=== PATIENT | male | born 1960 | race Caucasian/White ===

== ENCOUNTER 2019-08-02 14:07 | Emergency (ER) | payer OTHER ==
[~2019-08-02] VITALS: Ht 185.4 cm; Wt 74.8 kg
[~2019-08-02 14:07] MED LIST: Bactrim Ds Tab1 EACH PO; CEPH500 PO; MUPI2TC TOP
[2019-08-02 14:36] LABS: BASOPHILS ABSOLUTE AUTO 0.08 K/mm3 (0.00-0.23); BASOPHILS PERCENT AUTO 1 % (0-2); EOSINOPHILS ABSOLUTE AUTO 0.04 K/mm3 (0.00-0.68); EOSINOPHILS PERCENT AUTO 1 % (0-6); Hematocrit 42.3 % (37.0-53.0); Hemoglobin 14.3 g/dL (13.5-17.5); IMMATURE GRAN ABSOLUTE AUTO 0.02 K/mm3 (0.00-0.10); IMMATURE GRAN PERCENT AUTO 0 % (0-1); LYMPHOCYTES ABSOLUTE AUTO 2.89 K/mm3 (0.84-5.20); LYMPHOCYTES PERCENT AUTO 36 % (21-46); MONOCYTES ABSOLUTE AUTO 0.83 K/mm3 (0.16-1.47); MONOCYTES PERCENT AUTO 10 % (4-13); Mean Corpuscular HGB 33.8 pg (26.0-34.0); Mean Corpuscular HGB Conc 33.8 g/dL (31.5-36.5); Mean Corpuscular Volume 100 fL (80-100); NEUTROPHILS ABSOLUTE AUTO 4.23 K/mm3 (1.96-9.15); NEUTROPHILS PERCENT AUTO 52 % (41-73); Platelet Count 247 K/mm3 (150-400); RDW Coefficient Variation 12.5 % (11.7-14.2); RDW Standard Deviation 46.8 fL (35.1-46.3); Red Blood Cell Count 4.23 M/mm3 (4.30-5.90); White Blood Cell Count 8.09 K/mm3 (4.00-11.30)
[2019-08-02] MEDS ORDERED: Bactrim Ds Tab1 EACH PO (14:56)
[2019-08-02] MEDS ORDERED: Keflex500 MG PO (14:56)
[2019-08-02 14:57] LABS: Alanine Aminotransfer (ALT/SGP 51 U/L (12-78); Albumin, Blood 3.8 g/dL (3.4-5.0); Albumin/Globulin Ratio 0.9 (0.8-1.8); Alk Phos 74 U/L (50-136); Anion Gap 10 mmol/L (6-16); Aspartate Aminotrans (AST/SGOT 53 U/L (12-37); Bilirubin, Total 0.4 mg/dL (0.1-1.0); Blood Urea Nitrogen 9 mg/dL (8-24); Bun/Creatinine Ratio 17.7 (12.0-20.0); CO2, Blood 22 mmol/L (21-32); Calcium, Blood 8.2 mg/dL (8.5-10.1); Chloride, Blood 102 mmol/L (98-108); Creatinine, Blood 0.51 mg/dL (0.60-1.20); Globulin, Blood 4.3 g/dL (2.2-4.0); Glomerular Filtration Rate >60 (60-); Glucose, Blood 84 mg/dL (70-99); Sodium, Blood 134 mmol/L (136-145); Total Protein, Blood 8.1 g/dL (6.4-8.2)
== END 2019-08-02 15:24 | disposition home or self-care (01) ==
LOC: ER 14:07
PROVIDERS: Physician Assistant
DX: L97.929 Non-pressure chronic ulcer of unspecified part of left lower leg with unspecified severity (principal); F17.200 Nicotine dependence, unspecified, uncomplicated
CPT/HCPCS: 36415; 80053; 85025; 87070; 87075; 87077; 87147; 87186; 87205; 99283

== ENCOUNTER 2019-08-03 11:04 | Emergency (ER) | payer OTHER ==
[~2019-08-03] VITALS: Ht 185.4 cm; Wt 74.8 kg
[~2019-08-03 11:04] MED LIST changes: +Keflex500 MG PO
== END 2019-08-03 12:41 | disposition home or self-care (01) ==
LOC: ER 11:04
DX: L97.929 Non-pressure chronic ulcer of unspecified part of left lower leg with unspecified severity (principal); F17.200 Nicotine dependence, unspecified, uncomplicated
CPT/HCPCS: 99282

== ENCOUNTER 2020-04-30 19:03 | Emergency (ER) | payer OTHER ==
[~2020-04-30] VITALS: Ht 185.4 cm; Wt 67.6 kg
[~2020-04-30 19:03] MED LIST changes: +ACETAMINOPHEN500 MG PO
[2020-04-30] MEDS ORDERED: Naprosyn500 MG PO (19:21)
[2020-04-30] MEDS ORDERED: Bactrim Ds Tab1 EACH PO (19:21)
[2020-04-30] MEDS ORDERED: Keflex500 MG PO (19:21)
== END 2020-04-30 19:36 | disposition home or self-care (01) ==
LOC: ER 19:03
DX: L03.312 Cellulitis of back [any part except buttock and flank] (principal); F17.210 Nicotine dependence, cigarettes, uncomplicated
CPT/HCPCS: 99283; A9270-GY

== ENCOUNTER 2020-07-16 16:33 | Emergency (ER) | payer OTHER ==
[~2020-07-16] VITALS: Ht 177.8 cm; Wt 65.8 kg
[~2020-07-16 16:33] MED LIST changes: +Naprosyn500 MG PO
== END 2020-07-16 21:00 | disposition home or self-care (01) ==
LOC: ER 16:33
DX: S43.034A Inferior dislocation of right humerus, initial encounter (principal); S09.90XA Unspecified injury of head, initial encounter; F17.210 Nicotine dependence, cigarettes, uncomplicated; V19.9XXA Pedal cyclist (driver) (passenger) injured in unspecified traffic accident, initial encounter; Y92.410 Unspecified street and highway as the place of occurrence of the external cause
CPT/HCPCS: 23650; 70450; 72125; 73020; 73030; 96374-59; 99152; 99285-25; J2250; J2704; J3010; J7030

== ENCOUNTER 2020-07-18 07:31 | Emergency (ER) | payer OTHER ==
[~2020-07-18] VITALS: Ht 182.9 cm; Wt 86.2 kg
[2020-07-18 08:38] LABS: BASOPHILS ABSOLUTE AUTO 0.05 K/mm3 (0.00-0.23); BASOPHILS PERCENT AUTO 1 % (0-2); EOSINOPHILS PERCENT AUTO 0 % (0-6); Hematocrit 42.8 % (37.0-53.0); Hemoglobin 14.9 g/dL (13.5-17.5); IMMATURE GRAN ABSOLUTE AUTO 0.03 K/mm3 (0.00-0.10); IMMATURE GRAN PERCENT AUTO 0 % (0-1); LYMPHOCYTES ABSOLUTE AUTO 0.76 K/mm3 (0.84-5.20); LYMPHOCYTES PERCENT AUTO 10 % (21-46); MONOCYTES ABSOLUTE AUTO 0.52 K/mm3 (0.16-1.47); MONOCYTES PERCENT AUTO 7 % (4-13); Mean Corpuscular HGB 34.2 pg (26.0-34.0); Mean Corpuscular HGB Conc 34.8 g/dL (31.5-36.5); Mean Corpuscular Volume 98 fL (80-100); Mean Platelet Volume 9.6 fL (9.1-12.4); NEUTROPHILS ABSOLUTE AUTO 6.23 K/mm3 (1.96-9.15); NEUTROPHILS PERCENT AUTO 82 % (41-73); Platelet Count 239 K/mm3 (150-400); RDW Coefficient Variation 11.9 % (11.7-14.2); RDW Standard Deviation 43.5 fL (35.1-46.3); Red Blood Cell Count 4.36 M/mm3 (4.30-5.90); White Blood Cell Count 7.59 K/mm3 (4.00-11.30)
[2020-07-18 08:59] LABS: Alanine Aminotransfer (ALT/SGP 73 U/L (12-78); Albumin/Globulin Ratio 0.9 (0.8-1.8); Alk Phos 82 U/L (50-136); Anion Gap 6 mmol/L (6-16); Aspartate Aminotrans (AST/SGOT 88 U/L (12-37); Bilirubin, Total 0.6 mg/dL (0.1-1.0); Blood Urea Nitrogen 8 mg/dL (8-24); Bun/Creatinine Ratio 16.8 (12.0-20.0); CO2, Blood 28 mmol/L (21-32); Calcium, Blood 9.2 mg/dL (8.5-10.1); Chloride, Blood 105 mmol/L (98-108); Creatinine, Blood 0.48 mg/dL (0.60-1.20); Globulin, Blood 4.5 g/dL (2.2-4.0); Glomerular Filtration Rate >60 (60-); Glucose, Blood 132 mg/dL (70-99); Potassium, Blood 4.1 mmol/L (3.5-5.5); Sodium, Blood 139 mmol/L (136-145); Total Protein, Blood 8.5 g/dL (6.4-8.2)
== END 2020-07-18 11:57 | disposition home or self-care (01) ==
LOC: ER 07:31
PROVIDERS: Emergency Medicine
DX: S01.111A Laceration without foreign body of right eyelid and periocular area, initial encounter (principal); R42 Dizziness and giddiness; F17.210 Nicotine dependence, cigarettes, uncomplicated; Z23 Encounter for immunization; Z79.899 Other long term (current) drug therapy; W01.10XA Fall on same level from slipping, tripping and stumbling with subsequent striking against unspecified object, initial encounter
CPT/HCPCS: 12052; 36415; 70450; 80053; 85025; 90471; 90714; 93005; 93010; 99284-25

== ENCOUNTER → 2020-07-28 | Outpatient (CLI) | payer OTHER ==
[~2020-07-28] MED LIST changes: +AMLO10 PO; +B-1100 M1 PO; +CEFU500T30 PO; +HYDCHL12.5 PO; +Prinivil10 MG PO; +VSL PROBIOTIC PO
[2020-07-28 12:45] LABS: BASOPHILS ABSOLUTE AUTO 0.07 K/mm3 (0.00-0.23); BASOPHILS PERCENT AUTO 1 % (0-2); EOSINOPHILS ABSOLUTE AUTO 0.01 K/mm3 (0.00-0.68); EOSINOPHILS PERCENT AUTO 0 % (0-6); Hematocrit 41.3 % (37.0-53.0); Hemoglobin 14.1 g/dL (13.5-17.5); IMMATURE GRAN ABSOLUTE AUTO 0.06 K/mm3 (0.00-0.10); IMMATURE GRAN PERCENT AUTO 1 % (0-1); LYMPHOCYTES ABSOLUTE AUTO 1.67 K/mm3 (0.84-5.20); LYMPHOCYTES PERCENT AUTO 18 % (21-46); MONOCYTES ABSOLUTE AUTO 0.83 K/mm3 (0.16-1.47); MONOCYTES PERCENT AUTO 9 % (4-13); Mean Corpuscular HGB 34.2 pg (26.0-34.0); Mean Corpuscular HGB Conc 34.1 g/dL (31.5-36.5); Mean Corpuscular Volume 100 fL (80-100); Mean Platelet Volume 9.6 fL (9.1-12.4); NEUTROPHILS ABSOLUTE AUTO 6.92 K/mm3 (1.96-9.15); NEUTROPHILS PERCENT AUTO 72 % (41-73); Platelet Count 281 K/mm3 (150-400); RDW Standard Deviation 44.3 fL (35.1-46.3); Red Blood Cell Count 4.12 M/mm3 (4.30-5.90); White Blood Cell Count 9.56 K/mm3 (4.00-11.30)
[2020-07-28 13:30] LABS: Alanine Aminotransfer (ALT/SGP 72 U/L (12-78); Albumin, Blood 3.5 g/dL (3.4-5.0); Albumin/Globulin Ratio 0.7 (0.8-1.8); Alk Phos 86 U/L (50-136); Anion Gap 8 mmol/L (6-16); Aspartate Aminotrans (AST/SGOT 71 U/L (12-37); Bilirubin, Total 0.4 mg/dL (0.1-1.0); Blood Urea Nitrogen 11 mg/dL (8-24); Bun/Creatinine Ratio 20.4 (12.0-20.0); CHOL/HDL RATIO 2.2; CO2, Blood 26 mmol/L (21-32); Calcium, Blood 8.7 mg/dL (8.5-10.1); Chloride, Blood 101 mmol/L (98-108); Cholesterol 136 mg/dL (50-200); Creatinine, Blood 0.54 mg/dL (0.60-1.20); Globulin, Blood 4.9 g/dL (2.2-4.0); Glomerular Filtration Rate >60 (60-); Glucose, Blood 114 mg/dL (70-99); HDL Cholesterol 62 mg/dL (>39); Low Density Lipoprotein Chol 62 mg/dL (0-110); Potassium, Blood 4.4 mmol/L (3.5-5.5); Sodium, Blood 135 mmol/L (136-145); Total Protein, Blood 8.4 g/dL (6.4-8.2); Triglycerides 58 mg/dL (30-160); Very Low Density Lipoprot Chol 11 mg/dL (6-32)
== END | disposition home or self-care (01) ==
LOC: LAB SHORT 09:00 → LAB UCHC 09:00
PROVIDERS: Nurse Practitioner
DX: Z13.6 Encounter for screening for cardiovascular disorders (principal); R42 Dizziness and giddiness
CPT/HCPCS: 80053; 80061; 85025

== ENCOUNTER 2020-08-01 09:19 | Emergency (ER) | payer OTHER ==
[~2020-08-01 09:19] MED LIST changes: -AMLO10 PO; -B-1100 M1 PO; -CEFU500T30 PO; -HYDCHL12.5 PO; -Prinivil10 MG PO; -VSL PROBIOTIC PO
== END 2020-08-01 09:49 | disposition left against medical advice (07) ==
LOC: ER 09:19
DX: Z53.21 Procedure and treatment not carried out due to patient leaving prior to being seen by health care provider (principal)

== ENCOUNTER 2020-08-02 17:09 | Inpatient (IN) | payer OTHER ==
[~2020-08-02] VITALS: Ht 185.4 cm; Wt 66.6 kg
[2020-08-02 17:48] LABS: BASOPHILS ABSOLUTE AUTO 0.06 K/mm3 (0.00-0.23); BASOPHILS PERCENT AUTO 1 % (0-2); EOSINOPHILS ABSOLUTE AUTO 0.06 K/mm3 (0.00-0.68); EOSINOPHILS PERCENT AUTO 1 % (0-6); Hematocrit 41.8 % (37.0-53.0); IMMATURE GRAN ABSOLUTE AUTO 0.06 K/mm3 (0.00-0.10); IMMATURE GRAN PERCENT AUTO 1 % (0-1); LYMPHOCYTES ABSOLUTE AUTO 2.15 K/mm3 (0.84-5.20); LYMPHOCYTES PERCENT AUTO 25 % (21-46); MONOCYTES PERCENT AUTO 10 % (4-13); Mean Corpuscular HGB 33.7 pg (26.0-34.0); Mean Corpuscular HGB Conc 33.5 g/dL (31.5-36.5); Mean Corpuscular Volume 101 fL (80-100); Mean Platelet Volume 9.3 fL (9.1-12.4); NEUTROPHILS ABSOLUTE AUTO 5.41 K/mm3 (1.96-9.15); NEUTROPHILS PERCENT AUTO 63 % (41-73); Platelet Count 315 K/mm3 (150-400); RDW Coefficient Variation 11.9 % (11.7-14.2); RDW Standard Deviation 44.6 fL (35.1-46.3); Red Blood Cell Count 4.16 M/mm3 (4.30-5.90); White Blood Cell Count 8.64 K/mm3 (4.00-11.30)
[2020-08-02 18:20] LABS: Alanine Aminotransfer (ALT/SGP 63 U/L (12-78); Albumin, Blood 3.6 g/dL (3.4-5.0); Albumin/Globulin Ratio 0.7 (0.8-1.8); Alk Phos 92 U/L (50-136); Anion Gap 6 mmol/L (6-16); Aspartate Aminotrans (AST/SGOT 61 U/L (12-37); Bilirubin, Total 0.4 mg/dL (0.1-1.0); Blood Urea Nitrogen 12 mg/dL (8-24); Bun/Creatinine Ratio 17.6 (12.0-20.0); CO2, Blood 27 mmol/L (21-32); Calcium, Blood 9.4 mg/dL (8.5-10.1); Chloride, Blood 103 mmol/L (98-108); Creatinine, Blood 0.68 mg/dL (0.60-1.20); Glomerular Filtration Rate >60 (60-); Glucose, Blood 89 mg/dL (70-99); Potassium, Blood 4.5 mmol/L (3.5-5.5); Sodium, Blood 136 mmol/L (136-145); Total Protein, Blood 8.6 g/dL (6.4-8.2)
[2020-08-03 04:50] LABS: BASOPHILS ABSOLUTE AUTO 0.06 K/mm3 (0.00-0.23); BASOPHILS PERCENT AUTO 1 % (0-2); EOSINOPHILS ABSOLUTE AUTO 0.05 K/mm3 (0.00-0.68); EOSINOPHILS PERCENT AUTO 1 % (0-6); Hematocrit 44.8 % (37.0-53.0); IMMATURE GRAN ABSOLUTE AUTO 0.03 K/mm3 (0.00-0.10); IMMATURE GRAN PERCENT AUTO 1 % (0-1); LYMPHOCYTES ABSOLUTE AUTO 1.48 K/mm3 (0.84-5.20); LYMPHOCYTES PERCENT AUTO 23 % (21-46); MONOCYTES ABSOLUTE AUTO 0.76 K/mm3 (0.16-1.47); MONOCYTES PERCENT AUTO 12 % (4-13); Mean Corpuscular HGB 33.5 pg (26.0-34.0); Mean Corpuscular HGB Conc 33.5 g/dL (31.5-36.5); Mean Corpuscular Volume 100 fL (80-100); Mean Platelet Volume 9.4 fL (9.1-12.4); NEUTROPHILS ABSOLUTE AUTO 4.19 K/mm3 (1.96-9.15); NEUTROPHILS PERCENT AUTO 64 % (41-73); Platelet Count 307 K/mm3 (150-400); RDW Coefficient Variation 11.9 % (11.7-14.2); RDW Standard Deviation 43.8 fL (35.1-46.3); Red Blood Cell Count 4.48 M/mm3 (4.30-5.90); White Blood Cell Count 6.57 K/mm3 (4.00-11.30)
--- NOTE | 2020-08-03 06:38 | NUR ---
SHIFT SUMMARY PT WAS A NEW ADMIT DURING THE NIGHT, ARRIVING ON THE FLOOR AT 2054. HE WAS ADMITTED FOR R EYE CELLULITIS AND ABSCESS. PER PT, HE RECEIVED A LACERATION AND STITCHES AFTER A FALL TWO WEEKS AGO THAT BECAME INFECTED. PICTURES IN THE CHART. PT IS A&O X 4, SBA IN THE ROOM. PT DID REPORT MILD PAIN IN THE SITE, BUT REFUSED THE NEED FOR PAIN MEDS, AND DENIED ANY NAUSEA OR SOB. BP WAS ELEVATED ON ADMISSION AT 201/123. PRN HYDRALAZINE ORDERED AND GIVEN, AND BP CAME DOWN TO 173/106. ALL OTHER VITAL SIGNS STABLE. TELE SHOWED NSR IN THE 90S. NO OTHER ACUTE CHANGES IN PT CONDITION NOTED DURING THE NIGHT. WILL CONTINUE TO MONITOR AND TREAT PER EMAR UNTIL HAND OFF TO DAY SHIFT RN.
--- NOTE | 2020-08-03 18:22 | NUR ---
PAT ATE HIS MEALS, WAS MED COMPLAINT, PLEASANT, ABULATES WITH NO ASSIST, IV SITE WNL AND RUNNING, RESTING IN BED WAITING FOR OPTHALMIC CONSULT.
--- NOTE | 2020-08-03 19:25 | NUR ---
ASSUMED CARE RECEIVED REPORT FROM OMAIRA DE. ASSUMED CARE OF PT. PT RESTING COMFORTABLY, NO S/S ACUTE DISTRESS NOTED, RESPS EVEN AND UNLABORED. DENIES NEEDS. CALL LIGHT, POSSESSIONS IN REACH, BED IN LOW POSITION. WCTM.
--- NOTE | 2020-08-04 07:30 | NUR ---
SHIFT SUMMARY PT RESTING COMFORTABLY, NO S/S ACUTE DISTRESS NOTED. REPORTS NOT SLEEPING MUCH T/O NIGHT, STATES HE WAS SWEATY AND NOT FEELING WELL. RT EYE REMAINS SWOLLEN, PT REPORTS DECREASED VISION AND ABILITY TO OPEN/CLOSE EYE. OPHTHALMOLOGY CONSULT PENDING. VS REVIEWED. PT DENIES NEEDS AT THIS TIME. CALL LIGHT, POSSESSIONS IN REACH, REPORT GIVEN TO OMAIRA VALENCIA.
--- NOTE | 2020-08-04 18:52 | NUR ---
SHIFT SUMMARY: NO ACUTE EVENTS THIS SHIFT. UNABLE TO ASSESS R EYE D/T SWELLING AND CRUSTING. NO EVENTS ON TELEMETRY, SR-ST 90-110. TOLERATING REGULAR DIET. NICOTINE PATCH ON SCOUT. DR. OTT EXAMINED PATIENT TODAY. ABX SWITCHED TO UNASYN, TOLERATING. GOOD APPETITE. INDEPENDENT IN ROOM.
--- NOTE | 2020-08-04 19:00 | NUR ---
ASSUMED CARE RECEIVED REPORT FROM OMAIRA VALENCIA. ASSUMED CARE OF PT. RESTING COMFORTABLY, NO S/S ACUTE DISTRESS NOTED. DENIES NEEDS. CALL LIGHT, POSSESSIONS IN REACH, BED IN LOW POSITION. WCTM.
--- NOTE | 2020-08-05 07:10 | NUR ---
SHIFT SUMMARY PT HAS HAD NO ACUTE CHANGES IN CONDITION T/O NIGHT, SLEPT T/O. TOLERATED PHENOBARBITAL WELL, NO S/S ADVERSE EFFECTS NOTED. RT EYE REMAINS SWOLLEN, MEDICATED FOR PAIN, EFFECTIVE. VS REVIEWED, MEDICATED FOR HTN X1, EFFECTIVE. PT DENIES NEEDS AT THIS TIME. CALL LIGHT, POSSESSIONS IN REACH, BED IN LOW POSITION WITH ALARMS ON. REPORT GIVEN TO OMAIRA READ.
--- NOTE | 2020-08-05 19:45 | NUR ---
SHIFT SUMMARY PT AXO, PLEASANT AND COOPERATIVE WITH CARE. UP AD INGRID IN ROOM WITH STEADY GAIT. IV PATENT AND INFUSING PER EMAR. WOUND OPEN TO AIR, CONTINUES TO DRAIN MODERATE AMOUNT OF YELLOW DRAINAGE. NO ACUTE CHANGES THIS SHIFT. PT EDUCATED ON SMOKING CESSATION. BED IN LOW POSITION, CALL LIGHT WITHIN REACH.
[2020-08-06] MEDS ORDERED: AMLO10 PO (10:24)
[2020-08-06] MEDS ORDERED: CEFU500T30 PO (10:25)
[2020-08-06] MEDS ORDERED: VSL PROBIOTIC PO (10:25)
[2020-08-06] MEDS ORDERED: HYDCHL12.5 PO (10:26)
[2020-08-06] MEDS ORDERED: B-1100 M1 PO (10:26)
[2020-08-06] MEDS ORDERED: Prinivil10 MG PO (10:26)
--- NOTE | 2020-08-06 11:06 | NUR ---
DISCHARGE PT DISCHARGED TO HOME WALKED WITH FRIEND. IV DCD. PT ALSO PROVIDED PACKET/HANDOUTS -MEDICATIONS SENT TO [facility]. PT ALSO TOLD TO FU TO PCP. VSS THIS AM. AND PT EDUCATED ABOUT THE NEW RX MEDICATIONS.
== END 2020-08-06 10:45 | disposition home or self-care (01) | DRG 603 ==
LOC: ER 17:09 → MEDS 17:10
PROVIDERS: Physician Assistant; ADMIT Family Medicine
DX: L03.213 Periorbital cellulitis (principal); F10.239 Alcohol dependence with withdrawal, unspecified; R65.10 Systemic inflammatory response syndrome (SIRS) of non-infectious origin without acute organ dysfunction; I10 Essential (primary) hypertension; I16.0 Hypertensive urgency; Z59.0 Homelessness; W19.XXXA Unspecified fall, initial encounter; B95.0 Streptococcus, group A, as the cause of diseases classified elsewhere; F17.210 Nicotine dependence, cigarettes, uncomplicated
CPT/HCPCS: 36415; 70481; 80053; 85025; 87070; 87075; 87147; 87205; 94640; 94760; 96365-59; 96375-59; 99285-25; A9270; A9270-GY; J0295; J0690; J0696; J1885; J3370; J7050; Q9967

== ENCOUNTER → 2020-08-18 | Outpatient (CLI) | payer OTHER ==
[~2020-08-18] MED LIST changes: +AMLO10 PO; +AZIT500 PO; +B-1100 M1 PO; +CALCIUM CIT 311 EACH PO; +CEFU500T30 PO; +HYDCHL12.5 PO; +IBU600 MG PO; +ONDA4ODT MM; +ONDA4ODT PO; +PANT40 PO; +PROAIR RESPICL90 MCG PO; +Prinivil10 MG PO; +Q-Tussin100 MG/5 M PO; +VISBIOME 112.51 EACH PO; +VSL PROBIOTIC PO
== END | disposition home or self-care (01) ==
LOC: LAB UCHC 11:41
DX: S01.81XD Laceration without foreign body of other part of head, subsequent encounter (principal)
CPT/HCPCS: 87070; 87075; 87205

== ENCOUNTER 2020-11-08 16:03 | Observation (INO) | payer OTHER ==
[~2020-11-08] VITALS: Ht 185.4 cm; Wt 72.1 kg
[~2020-11-08 16:03] MED LIST changes: -AZIT500 PO; -CALCIUM CIT 311 EACH PO; -IBU600 MG PO; -ONDA4ODT MM; -ONDA4ODT PO; -PANT40 PO; -PROAIR RESPICL90 MCG PO; -Q-Tussin100 MG/5 M PO; -VISBIOME 112.51 EACH PO
[2020-11-08 16:57] LABS: BASOPHILS ABSOLUTE AUTO 0.03 K/mm3 (0.00-0.23); BASOPHILS PERCENT AUTO 0 % (0-2); EOSINOPHILS PERCENT AUTO 0 % (0-6); Hematocrit 36.5 % (37.0-53.0); IMMATURE GRAN ABSOLUTE AUTO 0.08 K/mm3 (0.00-0.10); IMMATURE GRAN PERCENT AUTO 0 % (0-1); LYMPHOCYTES ABSOLUTE AUTO 1.09 K/mm3 (0.84-5.20); LYMPHOCYTES PERCENT AUTO 6 % (21-46); MONOCYTES ABSOLUTE AUTO 1.77 K/mm3 (0.16-1.47); MONOCYTES PERCENT AUTO 10 % (4-13); Mean Corpuscular HGB 33.7 pg (26.0-34.0); Mean Corpuscular HGB Conc 35.6 g/dL (31.5-36.5); Mean Corpuscular Volume 95 fL (80-100); Mean Platelet Volume 9.3 fL (9.1-12.4); NEUTROPHILS ABSOLUTE AUTO 15.33 K/mm3 (1.96-9.15); NEUTROPHILS PERCENT AUTO 84 % (41-73); Platelet Count 359 K/mm3 (150-400); RDW Standard Deviation 41.8 fL (35.1-46.3); Red Blood Cell Count 3.86 M/mm3 (4.30-5.90)
[2020-11-08 17:33] LABS: Alanine Aminotransfer (ALT/SGP 26 U/L (12-78); Albumin, Blood 2.8 g/dL (3.4-5.0); Albumin/Globulin Ratio 0.6 (0.8-1.8); Alk Phos 63 U/L (50-136); Anion Gap 8 mmol/L (6-16); Aspartate Aminotrans (AST/SGOT 27 U/L (12-37); Bilirubin, Total 0.7 mg/dL (0.1-1.0); Blood Urea Nitrogen 9 mg/dL (8-24); Bun/Creatinine Ratio 17.8 (12.0-20.0); CO2, Blood 24 mmol/L (21-32); Calcium, Blood 8.4 mg/dL (8.5-10.1); Chloride, Blood 90 mmol/L (98-108); Creatinine, Blood 0.51 mg/dL (0.60-1.20); Globulin, Blood 4.8 g/dL (2.2-4.0); Glomerular Filtration Rate >60 (60-); Glucose, Blood 99 mg/dL (70-99); Potassium, Blood 3.7 mmol/L (3.5-5.5); Sodium, Blood 122 mmol/L (136-145); Total Protein, Blood 7.6 g/dL (6.4-8.2); Troponin I <0.015 ng/mL (0.000-0.040)
[2020-11-08 21:41] LABS: Source, Urine Voided
[2020-11-08 21:46] LABS: Bilirubin, Urine Neg (Neg); Blood, Urine 1+ (Neg); Glucose Qualitative, Urine 2+ (Neg); Ketones, Urine 3+ (Neg); Leukocyte Esterase, Urine Neg (Neg); Nitrite, Urine Neg (Neg); Protein, Urine 2+ (Neg); Specific Gravity, Urine 1.015 (1.003-1.022); Urobilinogen, Urine 2+ (Normal)
[2020-11-08 21:53] LABS: Appearance, Urine Clear (Clear); Color, Urine Yellow (P-Yellow)
[2020-11-08 21:54] LABS: Bacteria Few /hpf; Red Blood Cells, Urine 0-2 /hpf (0-2); Squamous Epithelial Cells Not Seen /hpf (Few)
[2020-11-09 01:12] LABS: BASOPHILS ABSOLUTE AUTO 0.03 K/mm3 (0.00-0.23); BASOPHILS PERCENT AUTO 0 % (0-2); EOSINOPHILS PERCENT AUTO 0 % (0-6); Hematocrit 36.3 % (37.0-53.0); Hemoglobin 13.1 g/dL (13.5-17.5); IMMATURE GRAN ABSOLUTE AUTO 0.07 K/mm3 (0.00-0.10); IMMATURE GRAN PERCENT AUTO 1 % (0-1); LYMPHOCYTES ABSOLUTE AUTO 0.85 K/mm3 (0.84-5.20); LYMPHOCYTES PERCENT AUTO 6 % (21-46); MONOCYTES ABSOLUTE AUTO 1.11 K/mm3 (0.16-1.47); MONOCYTES PERCENT AUTO 7 % (4-13); Mean Corpuscular HGB 34.1 pg (26.0-34.0); Mean Corpuscular HGB Conc 36.1 g/dL (31.5-36.5); Mean Corpuscular Volume 95 fL (80-100); Mean Platelet Volume 9.2 fL (9.1-12.4); NEUTROPHILS ABSOLUTE AUTO 13.08 K/mm3 (1.96-9.15); NEUTROPHILS PERCENT AUTO 86 % (41-73); Platelet Count 342 K/mm3 (150-400); RDW Coefficient Variation 11.9 % (11.7-14.2); RDW Standard Deviation 41.4 fL (35.1-46.3); Red Blood Cell Count 3.84 M/mm3 (4.30-5.90); White Blood Cell Count 15.14 K/mm3 (4.00-11.30)
[2020-11-09 01:33] LABS: Alanine Aminotransfer (ALT/SGP 23 U/L (12-78); Albumin, Blood 2.5 g/dL (3.4-5.0); Albumin/Globulin Ratio 0.5 (0.8-1.8); Alk Phos 61 U/L (50-136); Anion Gap 10 mmol/L (6-16); Aspartate Aminotrans (AST/SGOT 21 U/L (12-37); Blood Urea Nitrogen 10 mg/dL (8-24); Bun/Creatinine Ratio 17.4 (12.0-20.0); CO2, Blood 25 mmol/L (21-32); CPK Creatine Kinase 75 U/L (39-308); Calcium, Blood 8.3 mg/dL (8.5-10.1); Chloride, Blood 91 mmol/L (98-108); Creatinine, Blood 0.58 mg/dL (0.60-1.20); Globulin, Blood 4.6 g/dL (2.2-4.0); Glomerular Filtration Rate >60 (60-); Glucose, Blood 115 mg/dL (70-99); Potassium, Blood 3.8 mmol/L (3.5-5.5); Sodium, Blood 126 mmol/L (136-145); Total Protein, Blood 7.1 g/dL (6.4-8.2); Troponin I <0.015 ng/mL (0.000-0.040)
--- NOTE | 2020-11-09 08:23 | NUR ---
Patient arrived on the floor just after midnight. He was alert and oriented and quite pleasant to assess. CIWA scores were 3 and 2 respectively. Patient had esquisitely painful left shoulder and believed he injured it in one of his recent falls. Alarm was set on bed as patient thought he could just get oob and head to the bathroom. He agreed when he was reminded of his recent "white out falls"
[2020-11-09 09:50] LABS: CPK Creatine Kinase 72 U/L (39-308); Troponin I <0.015 ng/mL (0.000-0.040)
--- NOTE | 2020-11-09 10:04 | NUR ---
Echocardiogram completed.
[2020-11-09] MEDS ORDERED: PROAIR RESPICL90 MCG PO (17:23)
[2020-11-09] MEDS ORDERED: AZIT500 PO (17:24)
[2020-11-09] MEDS ORDERED: Q-Tussin100 MG/5 M PO (17:31)
[2020-11-09] MEDS ORDERED: IBU600 MG PO (17:32)
[2020-11-09] MEDS ORDERED: ONDA4ODT PO (17:34)
[2020-11-09] MEDS ORDERED: PANT40 PO (17:36)
[2020-11-09] MEDS ORDERED: VISBIOME 112.51 EACH PO (17:36)
--- NOTE | 2020-11-09 18:44 | NUR ---
PT RESTING IN BED WAITNG FOR CAB FOR DISCHARGE. PT MAKES NO COPLIANTS AT THIS TIME. IV HAS BEED DC'D AND WNL. PT EDUCATED ON NEW MEDICATIONS NEEDED AND HOMELESS SHELTERS IN AREA. WILL REPORT TO QC MANAGER RN.
== END 2020-11-09 18:45 | disposition home or self-care (01) ==
LOC: ER 16:03 → MEDS 16:04
PROVIDERS: Emergency Medicine; Physician Assistant; ADMIT Internal Medicine
DX: R07.89 Other chest pain (principal); E87.1 Hypo-osmolality and hyponatremia; E86.0 Dehydration; M19.012 Primary osteoarthritis, left shoulder; M19.011 Primary osteoarthritis, right shoulder; R55 Syncope and collapse; D72.829 Elevated white blood cell count, unspecified; F10.20 Alcohol dependence, uncomplicated; I10 Essential (primary) hypertension; K29.70 Gastritis, unspecified, without bleeding; J44.9 Chronic obstructive pulmonary disease, unspecified; F17.210 Nicotine dependence, cigarettes, uncomplicated; Z59.0 Homelessness
CPT/HCPCS: 36415; 71046; 73030; 74177; 80053; 81001; 82550; 83690; 84484; 85025; 93005; 93010; 93306; 94667; 94760; 96372; 96374; 96376; 99285-25; A9270; G0008; G0378; G0480; J1650; J3010; J7030; Q2038; Q9967

== ENCOUNTER 2020-11-14 13:24 | Emergency (ER) | payer OTHER ==
[~2020-11-14] VITALS: Ht 185.4 cm; Wt 72.6 kg
[~2020-11-14 13:24] MED LIST changes: +AZIT500 PO; +IBU600 MG PO; +ONDA4ODT PO; +PANT40 PO; +PROAIR RESPICL90 MCG PO; +Q-Tussin100 MG/5 M PO; +VISBIOME 112.51 EACH PO
[2020-11-14 14:25] LABS: BASOPHILS ABSOLUTE AUTO 0.04 K/mm3 (0.00-0.23); BASOPHILS PERCENT AUTO 0 % (0-2); Hematocrit 32.7 % (37.0-53.0); Hemoglobin 11.7 g/dL (13.5-17.5); LYMPHOCYTES ABSOLUTE AUTO 0.55 K/mm3 (0.84-5.20); LYMPHOCYTES PERCENT AUTO 4 % (21-46); MONOCYTES ABSOLUTE AUTO 0.62 K/mm3 (0.16-1.47); MONOCYTES PERCENT AUTO 5 % (4-13); Mean Corpuscular HGB 33.2 pg (26.0-34.0); Mean Corpuscular HGB Conc 35.8 g/dL (31.5-36.5); Mean Corpuscular Volume 93 fL (80-100); Platelet Count 575 K/mm3 (150-400); RDW Coefficient Variation 12.1 % (11.7-14.2); RDW Standard Deviation 41.7 fL (35.1-46.3); Red Blood Cell Count 3.52 M/mm3 (4.30-5.90); White Blood Cell Count 13.82 K/mm3 (4.00-11.30)
[2020-11-14 14:26] LABS: EOSINOPHILS PERCENT AUTO 0 % (0-6); IMMATURE GRAN ABSOLUTE AUTO 0.25 K/mm3 (0.00-0.10); IMMATURE GRAN PERCENT AUTO 2 % (0-1); NEUTROPHILS ABSOLUTE AUTO 12.36 K/mm3 (1.96-9.15); NEUTROPHILS PERCENT AUTO 89 % (41-73)
[2020-11-14 14:49] LABS: Alanine Aminotransfer (ALT/SGP 33 U/L (12-78); Albumin, Blood 1.9 g/dL (3.4-5.0); Albumin/Globulin Ratio 0.4 (0.8-1.8); Alk Phos 59 U/L (50-136); Anion Gap 11 mmol/L (6-16); Aspartate Aminotrans (AST/SGOT 39 U/L (12-37); Bilirubin, Total 0.5 mg/dL (0.1-1.0); Blood Urea Nitrogen 12 mg/dL (8-24); Bun/Creatinine Ratio 17.9 (12.0-20.0); CO2, Blood 25 mmol/L (21-32); Calcium, Blood 7.9 mg/dL (8.5-10.1); Chloride, Blood 89 mmol/L (98-108); Creatinine, Blood 0.67 mg/dL (0.60-1.20); Globulin, Blood 4.3 g/dL (2.2-4.0); Glomerular Filtration Rate >60 (60-); Glucose, Blood 156 mg/dL (70-99); Potassium, Blood 3.2 mmol/L (3.5-5.5); Sodium, Blood 125 mmol/L (136-145); Total Protein, Blood 6.2 g/dL (6.4-8.2)
[2020-11-14 17:50] LABS: Source, Urine Clean Catch
[2020-11-14 17:52] LABS: Appearance, Urine Clear (Clear); Bilirubin, Urine Neg (Neg); Blood, Urine Neg (Neg); Color, Urine Yellow (P-Yellow); Glucose Qualitative, Urine 1+ (Neg); Ketones, Urine Neg (Neg); Leukocyte Esterase, Urine Neg (Neg); Nitrite, Urine Neg (Neg); Protein, Urine Neg (Neg); Urobilinogen, Urine 1+ (Normal)
[2020-11-14 18:43] LABS: C-REACTIVE PROTEIN, EXT RANGE >19.000 mg/dL (0.000-0.300)
[2020-11-14] MEDS ORDERED: CALCIUM CIT 311 EACH PO (23:06)
[2020-11-14] MEDS ORDERED: ONDA4ODT MM (23:06)
== END 2020-11-15 00:07 | disposition home or self-care (01) ==
LOC: ER 13:24
PROVIDERS: Emergency Medicine; Physician Assistant
DX: E87.1 Hypo-osmolality and hyponatremia (principal); E46 Unspecified protein-calorie malnutrition; E83.51 Hypocalcemia; E87.6 Hypokalemia; I10 Essential (primary) hypertension; F17.210 Nicotine dependence, cigarettes, uncomplicated; Z79.899 Other long term (current) drug therapy
CPT/HCPCS: 36415; 70450; 70496; 70498; 71045; 80053; 81003; 82330; 83735; 84100; 84484; 85025; 86140; 93005; 93010; 96361; 96365; 99285-25; A9270; J0610; J7120; Q9967

== ENCOUNTER 2020-11-16 19:30 | Inpatient (IN) | payer OTHER ==
[~2020-11-16] VITALS: Ht 185.4 cm; Wt 66.5 kg
[~2020-11-16 19:30] MED LIST changes: +CALCIUM CIT 311 EACH PO; +ONDA4ODT MM
[2020-11-16 20:07] LABS: Hematocrit 30.1 % (37.0-53.0); Hemoglobin 10.8 g/dL (13.5-17.5); Mean Corpuscular HGB 33.3 pg (26.0-34.0); Mean Corpuscular HGB Conc 35.9 g/dL (31.5-36.5); Mean Corpuscular Volume 93 fL (80-100); Mean Platelet Volume 8.9 fL (9.1-12.4); Platelet Count 565 K/mm3 (150-400); RDW Coefficient Variation 12.2 % (11.7-14.2); RDW Standard Deviation 41.8 fL (35.1-46.3); Red Blood Cell Count 3.24 M/mm3 (4.30-5.90); White Blood Cell Count 9.85 K/mm3 (4.00-11.30)
[2020-11-16 20:24] LABS: BAND PERCENT MAN 27 % (0-8); BASOPHILS PERCENT MAN 0 % (0-2); EOSINOPHILS ABSOLUTE MAN 0.09 K/mm3 (0.00-0.68); EOSINOPHILS PERCENT MAN 1 % (0-6); LYMPHOCYTES ABSOLUTE MAN 0.59 K/mm3 (0.84-5.20); LYMPHOCYTES PERCENT MAN 6 % (21-46); METAMYELOCYTE ABSOLUTE MAN 0.19 K/mm3 (0.00-0.00); METAMYELOCYTE PERCENT MAN 2 % (0-0); MONOCYTES ABSOLUTE MAN 0.78 K/mm3 (0.16-1.47); MONOCYTES PERCENT MAN 8 % (4-13); NEUTROPHILS ABSOLUTE MAN 8.17 K/mm3 (1.96-9.15); SEG NEUTROPHILS PERCENT MAN 56 % (41-73); TOTAL CELLS COUNTED 100
[2020-11-16 20:27] LABS: Ethanol (Alcohol), Blood, Med 48 mg/dL
[2020-11-16 20:30] LABS: Alanine Aminotransfer (ALT/SGP 36 U/L (12-78); Albumin, Blood 1.9 g/dL (3.4-5.0); Albumin/Globulin Ratio 0.4 (0.8-1.8); Alk Phos 59 U/L (50-136); Anion Gap 10 mmol/L (6-16); Aspartate Aminotrans (AST/SGOT 46 U/L (12-37); Bilirubin, Total 0.2 mg/dL (0.1-1.0); Blood Urea Nitrogen 10 mg/dL (8-24); Bun/Creatinine Ratio 22.2 (12.0-20.0); CO2, Blood 24 mmol/L (21-32); Calcium, Blood 7.9 mg/dL (8.5-10.1); Chloride, Blood 90 mmol/L (98-108); Creatinine, Blood 0.45 mg/dL (0.60-1.20); Globulin, Blood 4.5 g/dL (2.2-4.0); Glomerular Filtration Rate >60 (60-); Glucose, Blood 113 mg/dL (70-99); Potassium, Blood 3.6 mmol/L (3.5-5.5); Sodium, Blood 124 mmol/L (136-145); Total Protein, Blood 6.4 g/dL (6.4-8.2)
[2020-11-16 22:10] LABS: CPK Creatine Kinase 51 U/L (39-308)
[2020-11-16 23:08] LABS: Source, Urine Clean Catch
[2020-11-16 23:11] LABS: Bilirubin, Urine Neg (Neg); Blood, Urine Neg (Neg); Glucose Qualitative, Urine 2+ (Neg); Ketones, Urine 1+ (Neg); Leukocyte Esterase, Urine 1+ (Neg); Nitrite, Urine Neg (Neg); Protein, Urine 2+ (Neg); Urobilinogen, Urine 2+ (Normal); pH, Urine 6.5 (5.0-8.0)
[2020-11-16 23:26] LABS: Appearance, Urine Clear (Clear); Bacteria Rare /hpf; Color, Urine Yellow (P-Yellow); Red Blood Cells, Urine Not Seen /hpf (0-2); Squamous Epithelial Cells Rare /hpf (Few)
[2020-11-16 23:48] LABS: Influenza A, PCR NEGATIVE (NEGATIVE); Influenza B, PCR NEGATIVE (NEGATIVE); Resp Syncytial Virus, PCR NEGATIVE (NEGATIVE); SARS-Cov-2 (COVID-19) PCR, MMC NEGATIVE (NEGATIVE)
--- NOTE | 2020-11-17 01:56 | NUR ---
11/17/[address] Gipson notified of left shoulder wound, large open area with black eschar and mcmanus drainage. Shoulder is red and swollen, minimal movement to shoulder. New IV antibiotic orders received. states he will come and assess shoulder and wound.
--- NOTE | 2020-11-17 04:35 | NUR ---
SHIFT SUMMARY- PT. NEW ADMISSION FROM ED. A&OX3, PT. WITH WOUND TO LT SHOULDER THAT APPEARS NECROTIC, IS RED, SWOLLEN, AND DRAINING. HOSPITALIST DR. WOLF NOTIFIED OF WOUND FOUND DURING ASSESSMENT, CAME UP TO UNIT TO ASSESS PT. PT. TAKEN DOWN FOR CT OF CHEST VIA BED. ALSO RT HAND SWOLLEN AND PAINFUL. PT. STATES DUE TO RECENT MULTIPLE FALLS PRIOR TO COMING INTO THE HOSPITAL, PT. HOMELESS. MEDICATED PER EMAR WITH GOOD EFFECT. PT. SLEEPING ON/OFF T/O THE NIGHT, NO APPARENT DISTRESS NOTED. IV FLUIDS INFUSING WELL IV ABX'S. VSS, TEMP WNL. CALL LIGHT WITHIN REACH AND SIDE RAILS UPX2. WILL CONT TO MONITOR.
[2020-11-17 05:08] LABS: Hematocrit 30.3 % (37.0-53.0); Hemoglobin 11.1 g/dL (13.5-17.5); Mean Corpuscular HGB 33.7 pg (26.0-34.0); Mean Corpuscular HGB Conc 36.6 g/dL (31.5-36.5); Mean Corpuscular Volume 92 fL (80-100); Mean Platelet Volume 8.8 fL (9.1-12.4); Platelet Count 562 K/mm3 (150-400); RDW Coefficient Variation 12.3 % (11.7-14.2); RDW Standard Deviation 41.8 fL (35.1-46.3); Red Blood Cell Count 3.29 M/mm3 (4.30-5.90); White Blood Cell Count 10.13 K/mm3 (4.00-11.30)
[2020-11-17 05:31] LABS: Alanine Aminotransfer (ALT/SGP 29 U/L (12-78); Albumin, Blood 1.9 g/dL (3.4-5.0); Albumin/Globulin Ratio 0.5 (0.8-1.8); Alk Phos 53 U/L (50-136); Anion Gap 8 mmol/L (6-16); Aspartate Aminotrans (AST/SGOT 35 U/L (12-37); Bilirubin, Total 0.7 mg/dL (0.1-1.0); Blood Urea Nitrogen 8 mg/dL (8-24); Bun/Creatinine Ratio 16.3 (12.0-20.0); CO2, Blood 27 mmol/L (21-32); Calcium, Blood 7.9 mg/dL (8.5-10.1); Chloride, Blood 93 mmol/L (98-108); Creatinine, Blood 0.49 mg/dL (0.60-1.20); Globulin, Blood 4.1 g/dL (2.2-4.0); Glomerular Filtration Rate >60 (60-); Glucose, Blood 102 mg/dL (70-99); Potassium, Blood 3.4 mmol/L (3.5-5.5); Sodium, Blood 128 mmol/L (136-145)
[2020-11-17 05:55] LABS: BAND PERCENT MAN 29 % (0-8); BASOPHILS PERCENT MAN 0 % (0-2); EOSINOPHILS PERCENT MAN 0 % (0-6); LYMPHOCYTES PERCENT MAN 6 % (21-46); MONOCYTES PERCENT MAN 4 % (4-13); MYELOCYTE PERCENT MAN 1 % (0-0); NEUTROPHILS ABSOLUTE MAN 9.01 K/mm3 (1.96-9.15); SEG NEUTROPHILS PERCENT MAN 60 % (41-73); TOTAL CELLS COUNTED 100
[2020-11-17 08:32] LABS: U Amphetamine Screen Not Detected; U Barbituate Screen Not Detected; U Benzodiazapine Screen Not Detected; U Buprenorphine Screen Not Detected; U Cannabinoids Screen DETECTED; U Cocaine Screen Not Detected; U Methadone Screen Not Detected; U Methamphetamine Screen Not Detected; U Opiates Screen Not Detected; U Oxycodone Screen Not Detected; U Phencyclidine Screen Not Detected; U Propoxyphene Screen Not Detected
--- NOTE | 2020-11-17 11:16 | NUR ---
History, Chart, Medications and Allergies reviewed before start of procedure. LS WITH EXP WHEEZES THROUGH OUT. Patient confirms NPO status and agrees with scheduled surgery. Pre-Op teaching done. Pt verbalizes understanding.
--- NOTE | 2020-11-17 15:47 | NUR ---
THIS MORNING HE WAS FIRST MEDICATED WITH TYLENOL FOR THE PAIN IN HIS LEFT SHOUILDER, LOW BACK AND RH. IT WAS INEFFECTIVE SO HE THEN RECEIVED 50 MCG FENTANYL. IT HELPED LESSEN THE PAIN. THE K-RIDER DID NOT FINISH BEFORE HE WENT TO THE [facility]. HE HAD LITTLE MOBILITY D/T THE PAIN AND STIFFNESS. HIS RH IS SEVERELY SWIOLLEN. HIS R KNEE IS PUFFY AND RED. HIS L SHOULDER WOUND WAS WEEPY AND HAD AN ASCHAR TOP SURFACE. HIS FACE WAS KASEY AND VERY RED. TEMP 99.3. OTHER VS STABLE. HE USED THE URINAL HIMSELF TO VOID. HE HAS TO HAVE EVERYTHING IN HIS LAP. HE IS UNABLE TO REACH FOR ANYTHING WITH EITHER ARM. TO SURGERY AT 1055.
--- NOTE | 2020-11-17 17:07 | NUR ---
RECEIVED FROM PACU AT 1650. HE IS ALERT AND IN A GOOD MOOD. VSS EXCEPT FOR HIS HIGH BP. ROUNDED ON HIM AGAIN AT THIS TIME. HE EXPLAINED WHY ESTELA NEEDS TO BE TRANSFERRED UP [facility]. HE NEEDS A VASCULAR SURGEON. WOUND VAC IN PLACE ON HIS L SHOULDER. GAUZE DRESSING AND XAVI IN PLACE ON HIS R SHOULDER. IVF'S RESUMED INCLUDING THE REST OF HIS K-RIDER. HE IS DRINKING WATER AND CRANBERRY JUICE. ORDERED A SOFT DIET UNTIL FURTHER NOTICE. NO NAUSEA. NO PAIN. HE HAS A LITTLE MORE MOVEMENT IN HIS R ARM THAN THIS MORNING AND HIS RH IS NOT SWOLLEN. EACH ARM IS PLACED UP ON A PILLOW.
--- NOTE | 2020-11-17 18:57 | NUR ---
DISCHARGED TO [facility] AT 1847 BY AMBULANCE.HE HAS ZOSYN INFUSING AND HIS WOUND VAC TO SUCTION. THE C4 PLANNER WILL RETURN THE IV PUMP AND THE WOUND VAC. HE REMAINS A&O. HE ATE DINNER. HE IS DRINKING WELL. HE HAS NO PAIN OR NAUSEA POST OP. POST OP VS ARE STABLE. HIS BP IS HIGH. AWARE. I GAVE REPORT TO PETR CASTANO. TELE HAS BEEN NSR/ST. HE IS HAPPY TO BE GETTING THE CARE HE NEEDS.
== END 2020-11-17 18:47 | disposition short-term general hospital (02) | DRG 854 ==
LOC: ER 19:30 → MEDS 23:38 → ER 11-17 00:58 → MEDS 11-17 01:00
PROVIDERS: Emergency Medicine; Orthopaedic Surgery; Physician Assistant; ADMIT Internal Medicine
PROC: 0R9J0ZZ Drainage of Right Shoulder Joint, Open Approach (ICD-10-PCS; 2020-11-17)
PROC: 0R9K0ZZ Drainage of Left Shoulder Joint, Open Approach (ICD-10-PCS; 2020-11-17)
PROC: 0KB60ZZ Excision of Left Shoulder Muscle, Open Approach (ICD-10-PCS; principal; 2020-11-17 12:00)
DX: A41.9 Sepsis, unspecified organism (principal); M60.011 Infective myositis, right shoulder; M60.012 Infective myositis, left shoulder; E87.1 Hypo-osmolality and hyponatremia; L02.11 Cutaneous abscess of neck; Z20.822 Contact with and (suspected) exposure to COVID-19; D72.825 Bandemia; R65.20 Severe sepsis without septic shock; E88.09 Other disorders of plasma-protein metabolism, not elsewhere classified; M54.5 Low back pain; I10 Essential (primary) hypertension; F10.20 Alcohol dependence, uncomplicated; F17.210 Nicotine dependence, cigarettes, uncomplicated; Z79.899 Other long term (current) drug therapy
CPT/HCPCS: 0241U; 36415; 71045; 71260; 73130; 80053; 81001; 82550; 82607; 82746; 83605; 85025; 87040; 87070; 87075; 87086; 87205; 96365; 96366; 96368; 99285-25; A9270; G0480; J0696; J1100; J1885; J2250; J2405; J2543; J2704; J3010; J3370; J3480; J7030; J7120; P9046; Q2038; Q9967

== ENCOUNTER 2021-03-29 23:26 | Emergency (ER) | payer OTHER ==
[~2021-03-29] VITALS: Ht 185.4 cm; Wt 79.4 kg
== END 2021-03-30 02:30 | disposition home or self-care (01) ==
LOC: ER 23:26
DX: S01.112A Laceration without foreign body of left eyelid and periocular area, initial encounter (principal); F10.129 Alcohol abuse with intoxication, unspecified; I10 Essential (primary) hypertension; Z79.899 Other long term (current) drug therapy; W01.10XA Fall on same level from slipping, tripping and stumbling with subsequent striking against unspecified object, initial encounter
CPT/HCPCS: 12011; 70450; 72125; 99284-25

== ENCOUNTER 2021-04-20 15:53 | Emergency (ER) | payer OTHER ==
[~2021-04-20] VITALS: Ht 185.4 cm; Wt 77.1 kg
[2021-04-20 16:31] LABS: BASOPHILS ABSOLUTE AUTO 0.07 K/mm3 (0.00-0.23); BASOPHILS PERCENT AUTO 1 % (0-2); EOSINOPHILS ABSOLUTE AUTO 0.04 K/mm3 (0.00-0.68); EOSINOPHILS PERCENT AUTO 1 % (0-6); Hematocrit 38.9 % (37.0-53.0); Hemoglobin 13.6 g/dL (13.5-17.5); IMMATURE GRAN ABSOLUTE AUTO 0.05 K/mm3 (0.00-0.10); IMMATURE GRAN PERCENT AUTO 1 % (0-1); LYMPHOCYTES PERCENT AUTO 54 % (21-46); MONOCYTES ABSOLUTE AUTO 0.55 K/mm3 (0.16-1.47); MONOCYTES PERCENT AUTO 9 % (4-13); Mean Corpuscular HGB 31.3 pg (26.0-34.0); Mean Corpuscular Volume 90 fL (80-100); Mean Platelet Volume 9.6 fL (9.1-12.4); NEUTROPHILS ABSOLUTE AUTO 2.25 K/mm3 (1.96-9.15); NEUTROPHILS PERCENT AUTO 35 % (41-73); Platelet Count 259 K/mm3 (150-400); RDW Coefficient Variation 16.4 % (11.7-14.2); RDW Standard Deviation 53.3 fL (35.1-46.3); Red Blood Cell Count 4.34 M/mm3 (4.30-5.90); White Blood Cell Count 6.36 K/mm3 (4.00-11.30)
[2021-04-20 16:48] LABS: Alanine Aminotransfer (ALT/SGP 114 U/L (12-78); Albumin, Blood 3.6 g/dL (3.4-5.0); Albumin/Globulin Ratio 0.8 (0.8-1.8); Alk Phos 119 U/L (50-136); Anion Gap 9 mmol/L (6-16); Aspartate Aminotrans (AST/SGOT 134 U/L (12-37); Bilirubin, Total 0.3 mg/dL (0.1-1.0); Blood Urea Nitrogen 5 mg/dL (8-24); Bun/Creatinine Ratio 9.4 (12.0-20.0); CO2, Blood 25 mmol/L (21-32); Calcium, Blood 8.3 mg/dL (8.5-10.1); Chloride, Blood 105 mmol/L (98-108); Creatinine, Blood 0.53 mg/dL (0.60-1.20); Globulin, Blood 4.8 g/dL (2.2-4.0); Glomerular Filtration Rate >60 (60-); Glucose, Blood 78 mg/dL (70-99); Potassium, Blood 3.7 mmol/L (3.5-5.5); Sodium, Blood 139 mmol/L (136-145); Total Protein, Blood 8.4 g/dL (6.4-8.2); Troponin I <0.015 ng/mL (0.000-0.040)
[2021-04-20] MEDS ORDERED: MAGNESIUM OXID500 MG PO (16:49)
[2021-04-20] MEDS ORDERED: GABA400 PO (16:49)
[2021-04-20] MEDS ORDERED: CELE200 PO (16:50)
[2021-04-20] MEDS ORDERED: FEROSUL325 M1 PO (16:50)
[2021-04-20] MEDS ORDERED: AMLO10 PO (16:50)
[2021-04-20] MEDS ORDERED: ATOR20 PO (16:50)
== END 2021-04-20 17:27 | disposition home or self-care (01) ==
LOC: ER 15:53
PROVIDERS: Emergency Medicine
DX: R07.89 Other chest pain (principal); R42 Dizziness and giddiness; F17.210 Nicotine dependence, cigarettes, uncomplicated; I10 Essential (primary) hypertension; Z79.899 Other long term (current) drug therapy
CPT/HCPCS: 36415; 71046; 80053; 84484; 85025; 93005; 93010; 99285-25

== ENCOUNTER → 2021-08-17 | Outpatient (CLI) | payer OTHER ==
[~2021-08-17] MED LIST changes: +ATOR20 PO; +CELE200 PO; +FEROSUL325 M1 PO; +GABA400 PO; +MAGNESIUM OXID500 MG PO
[2021-08-17 14:19] LABS: Alanine Aminotransfer (ALT/SGP 33 U/L (12-78); Albumin, Blood 3.6 g/dL (3.4-5.0); Albumin/Globulin Ratio 0.7 (0.8-1.8); Alk Phos 80 U/L (50-136); Anion Gap 8 mmol/L (6-16); Aspartate Aminotrans (AST/SGOT 29 U/L (12-37); Bilirubin, Total 0.5 mg/dL (0.1-1.0); Blood Urea Nitrogen 12 mg/dL (8-24); Bun/Creatinine Ratio 21.6 (12.0-20.0); CO2, Blood 23 mmol/L (21-32); Chloride, Blood 106 mmol/L (98-108); Creatinine, Blood 0.56 mg/dL (0.60-1.20); Globulin, Blood 5.2 g/dL (2.2-4.0); Glomerular Filtration Rate >60 (60-); Glucose, Blood 77 mg/dL (70-99); Potassium, Blood 3.9 mmol/L (3.5-5.5); Sodium, Blood 137 mmol/L (136-145); Total Protein, Blood 8.8 g/dL (6.4-8.2); Uric Acid, Blood 6.6 mg/dL (3.5-7.2)
== END | disposition home or self-care (01) ==
LOC: LAB SHORT 11:00
PROVIDERS: Nurse Practitioner
DX: Z12.5 Encounter for screening for malignant neoplasm of prostate (principal); Z11.59 Encounter for screening for other viral diseases; R74.01 Elevation of levels of liver transaminase levels; M20.41 Other hammer toe(s) (acquired), right foot; L03.031 Cellulitis of right toe
CPT/HCPCS: 80053; 84550; 86803; G0103

== ENCOUNTER 2022-02-26 14:25 | Emergency (ER) | payer OTHER ==
[~2022-02-26] VITALS: Ht 185.4 cm; Wt 79.4 kg
== END 2022-02-26 15:38 | disposition left against medical advice (07) ==
LOC: ER 14:25
DX: R07.9 Chest pain, unspecified (principal); R42 Dizziness and giddiness; Z53.21 Procedure and treatment not carried out due to patient leaving prior to being seen by health care provider
CPT/HCPCS: 99281

== ENCOUNTER 2022-09-30 13:42 | Inpatient (IN) | payer OTHER ==
[~2022-09-30] VITALS: Ht 170.2 cm; Wt 70.3 kg
[~2022-09-30 13:42] MED LIST changes: +AMLO5 PO; +PROAIR RESPICL90 MCG INH; -PROAIR RESPICL90 MCG PO
[2022-09-30 14:20] LABS: Hematocrit 39.5 % (37.0-53.0); Hemoglobin 14.6 g/dL (13.5-17.5); Mean Corpuscular HGB 32.3 pg (26.0-34.0); Mean Corpuscular Volume 87 fL (80-100); Platelet Count 265 K/mm3 (150-400); RDW Coefficient Variation 11.9 % (11.7-14.2); RDW Standard Deviation 38.4 fL (35.1-46.3); Red Blood Cell Count 4.52 M/mm3 (4.30-5.90); White Blood Cell Count 16.55 K/mm3 (4.00-11.30)
[2022-09-30 14:27] LABS: Alanine Aminotransfer (ALT/SGP 104 U/L (12-78); Albumin/Globulin Ratio 0.4 (0.8-1.8); Alk Phos 85 U/L (50-136); Anion Gap 11 mmol/L (6-16); Aspartate Aminotrans (AST/SGOT 230 U/L (12-37); Bilirubin, Total 0.7 mg/dL (0.1-1.0); Blood Urea Nitrogen 19 mg/dL (8-24); Bun/Creatinine Ratio 36.5 (12.0-20.0); CO2, Blood 26 mmol/L (21-32); Calcium, Blood 8.1 mg/dL (8.5-10.1); Chloride, Blood 85 mmol/L (98-108); Creatinine, Blood 0.52 mg/dL (0.60-1.20); Ethanol (Alcohol), Blood, Med <3 mg/dL; Glomerular Filtration Rate 115 (60-); Glucose, Blood 129 mg/dL (70-99); Potassium, Blood 4.5 mmol/L (3.5-5.5); Sodium, Blood 122 mmol/L (136-145)
[2022-09-30 14:37] LABS: Source, Urine Foley catheter
[2022-09-30 14:50] LABS: Appearance, Urine Clear (Clear); Bilirubin, Urine Neg (Neg); Blood, Urine 4+ (Neg); Color, Urine Yellow (P-Yellow); Glucose Qualitative, Urine 1+ (Neg); Ketones, Urine 1+ (Neg); Leukocyte Esterase, Urine Neg (Neg); Nitrite, Urine Neg (Neg); Protein, Urine 3+ (Neg); Specific Gravity, Urine 1.015 (1.003-1.022); Urobilinogen, Urine 2+ (Normal)
[2022-09-30 14:52] LABS: Base Excess Venous 1.5 mmol/L; Bicarbonate Venous 24.8 mmol/L (24.0-30.0); PCO2 Venous 39.7 mmHg (38-42); pH Blood Venous 7.42 (7.34-7.37)
[2022-09-30 15:01] LABS: Creatine Kinase MB 1.3 ng/mL (0.0-3.6); Creatine Kinase MB Index 1.9 (0.0-4.0)
[2022-09-30 15:03] LABS: Thyroid Stimulating Hormone 0.549 uIU/mL (0.360-4.800)
[2022-09-30 15:16] LABS: U Amphetamine Screen Not Detected; U Barbituate Screen Not Detected; U Benzodiazapine Screen Not Detected; U Buprenorphine Screen Not Detected; U Cannabinoids Screen DETECTED; U Cocaine Screen Not Detected; U Methadone Screen Not Detected; U Methamphetamine Screen Not Detected; U Opiates Screen Not Detected; U Oxycodone Screen Not Detected; U Phencyclidine Screen Not Detected; U Propoxyphene Screen Not Detected
[2022-09-30 15:21] LABS: Bacteria Few /hpf; Squamous Epithelial Cells Few /hpf (Few); White Blood Cells, Urine 0-2 /hpf (0-5)
[2022-09-30 17:34] LABS: BAND PERCENT MAN 5 % (0-8); BASOPHILS PERCENT MAN 0 % (0-2); EOSINOPHILS PERCENT MAN 0 % (0-6); LYMPHOCYTES ABSOLUTE MAN 0.16 K/mm3 (0.84-5.20); LYMPHOCYTES PERCENT MAN 1 % (21-46); MONOCYTES ABSOLUTE MAN 0.16 K/mm3 (0.16-1.47); MONOCYTES PERCENT MAN 1 % (4-13); NEUTROPHILS ABSOLUTE MAN 16.21 K/mm3 (1.96-9.15); SEG NEUTROPHILS PERCENT MAN 93 % (41-73); TOTAL CELLS COUNTED 100
[2022-09-30 20:32] LABS: Bun/Creatinine Ratio 33.3 (12.0-20.0); Calcium, Blood 7.5 mg/dL (8.5-10.1); Creatinine, Blood 0.57 mg/dL (0.60-1.20); Potassium, Blood 3.8 mmol/L (3.5-5.5)
--- NOTE | 2022-09-30 21:46 | NUR ---
ADMISSION: PT ARRIVED TO PCU 3 @2029. SLID OVER FROM [facility]. PT OBTUNDED, UNABLE TO ANSWER QUESTION, DOES NOT RESPOND TO VERBAL OR PAINFUL STIMULI. PT EXTREMENTIES RETRACTED. HYPERTENSIVE, BP 140/113, HR ST 115, FEBRILE WITH TEMPERATURE 101.0, PRN RECTAL TYLENOL GIVEN, PT RESPIRATIONS LABORED. RESP 24-26. CURRENTLY ON 4L NC. LACTIC ACID 4.2, CURRENTLY RECEIVING SECOND BOLUS OF NORMAL SALINE. CALL PLACED TO MD. NEW ORDERS RECEIVED, SEE NURSE NOTIFY. RADIAL PULSES STRONG, PEDAL PULSES FAINT. PT INC OF BOTH URINE AND BOWEL, ATTENDS CHANGED AND REPOS TO L SIDE. REDNESS NOTED ON COCCYX, MEPLIEX IN PLACE, SEE PICTURES IN CHART. SEIZURE PRECAUTIONS IN PLACE, SUCTION AT BEDSIDE. PT CURRENTLY PLACE IN RULE OUT MENINGITIS AIRBORNE PRECAUTIONS, LAURA CASTANO, WILL BE TAKING OVER CARE. BED IN LOW, ALARM AND CAMERA ON, CALL LIGHT IN REACH.
[2022-09-30 22:42] LABS: Source, Urine Foley catheter
[2022-09-30 22:54] LABS: Appearance, Urine Clear (Clear); Bilirubin, Urine Neg (Neg); Blood, Urine 4+ (Neg); Color, Urine Yellow (P-Yellow); Glucose Qualitative, Urine 1+ (Neg); Ketones, Urine Neg (Neg); Leukocyte Esterase, Urine Neg (Neg); Nitrite, Urine Neg (Neg); Protein, Urine 3+ (Neg); Urobilinogen, Urine NORM (Normal)
[2022-09-30 23:24] LABS: Bun/Creatinine Ratio 34.2 (12.0-20.0); Calcium, Blood 7.4 mg/dL (8.5-10.1); Creatinine, Blood 0.56 mg/dL (0.60-1.20); Potassium, Blood 3.7 mmol/L (3.5-5.5)
[2022-09-30 23:53] LABS: Squamous Epithelial Cells Rare /hpf (Few); White Blood Cells, Urine 0-2 /hpf (0-5)
[2022-09-30 23:54] LABS: Bacteria Few /hpf
--- NOTE | 2022-10-01 03:19 | NUR ---
PHYSICIAN AT BEDSIDE/ATTEMPTED LP PHYSICIAN NOTIFIED OF PT HAVING RETRACTIONS AND CONT.SHAKING OF HEAD RIGHT TO LEFT. PLAN FOR LP TO R/O MENINGITIS. PT UNABLE TO HOLD STILL FOR LP. PHYSICIAN UNABLE TO DO LP AT THIS TIME D/T INABILITY TO DIRECT PT. INSTRUCTED TO HOLD OFF ON GIVING PT ATIVAN D/T MENTATION. ORDERS TO CHECK INR W/AM LABS IF PT ABLE TO HAVE LP DURING DAYSHIFT. WILL CONT TO MONITOR.
[2022-10-01 05:14] LABS: BASOPHILS ABSOLUTE AUTO 0.07 K/mm3 (0.00-0.23); BASOPHILS PERCENT AUTO 1 % (0-2); Hematocrit 39.8 % (37.0-53.0); Hemoglobin 14.6 g/dL (13.5-17.5); Mean Corpuscular HGB 32.4 pg (26.0-34.0); Mean Corpuscular HGB Conc 36.7 g/dL (31.5-36.5); Mean Corpuscular Volume 88 fL (80-100); Mean Platelet Volume 10.9 fL (9.1-12.4); Platelet Count 271 K/mm3 (150-400); RDW Coefficient Variation 12.2 % (11.7-14.2); RDW Standard Deviation 39.6 fL (35.1-46.3); White Blood Cell Count 15.26 K/mm3 (4.00-11.30)
[2022-10-01 05:16] LABS: EOSINOPHILS PERCENT AUTO 0 % (0-6); IMMATURE GRAN ABSOLUTE AUTO 0.15 K/mm3 (0.00-0.10); IMMATURE GRAN PERCENT AUTO 1 % (0-1); LYMPHOCYTES ABSOLUTE AUTO 0.44 K/mm3 (0.84-5.20); LYMPHOCYTES PERCENT AUTO 3 % (21-46); MONOCYTES ABSOLUTE AUTO 0.11 K/mm3 (0.16-1.47); MONOCYTES PERCENT AUTO 1 % (4-13); NEUTROPHILS ABSOLUTE AUTO 14.49 K/mm3 (1.96-9.15); NEUTROPHILS PERCENT AUTO 95 % (41-73)
--- NOTE | 2022-10-01 05:35 | NUR ---
SHIFT SUMMARY: NO CHANGES SINCE ADMISSIION. PT REMAINS OBTUNDED, UNABLE TO RESPOND TO VERBAL OR PAINFUL STIMULI. PT WITH UPPER EXTREMITY RETRACTIONS, PT CONSTANTLY SHAKING HEAD SIDE TO SIDE. BP HYPERTENSIVE, HR ST, FEBRILE WITH TEMP OF 101.6, MEDCIATED X2 WITH TYLENOL, ICE PACKS APPLIED. LUMBAR PUNCTURE ATTEMPTED BY , UNSUCCESSFUL. SHARMA CATH PLACED, DRAINING YELLOW URINE TO GRAVITY. NS GTT @100MLS/HR. BED IN LOW, CAMERA ON, WILL REPORT TO ONCOMING RN.
[2022-10-01 07:08] LABS: Albumin, Blood 1.7 g/dL (3.4-5.0); Albumin/Globulin Ratio 0.4 (0.8-1.8); Bilirubin, Total 0.9 mg/dL (0.1-1.0); Bun/Creatinine Ratio 33.9 (12.0-20.0); Calcium, Blood 7.9 mg/dL (8.5-10.1); Creatinine, Blood 0.56 mg/dL (0.60-1.20); Globulin, Blood 4.6 g/dL (2.2-4.0); Potassium, Blood 3.7 mmol/L (3.5-5.5); Total Protein, Blood 6.3 g/dL (6.4-8.2)
[2022-10-01 11:02] LABS: Adenovirus Not Detected (NOT DETECT); Bordetella pertussis Not Detected (NOT DETECT); Chlamydophila pneumoniae Not Detected (NOT DETECT); Coronavirus 229E Not Detected (NOT DETECT); Coronavirus HKU1 Not Detected (NOT DETECT); Coronavirus NL63 Not Detected (NOT DETECT); Coronavirus OC43 Not Detected (NOT DETECT); Human Metapneumovirus Not Detected (NOT DETECT); Human Rhinovirus/Enterovirus Not Detected (NOT DETECT); Influenza A/2009-H1 Not Detected (NOT DETECT); Influenza A/H1 Not Detected (NOT DETECT); Influenza A/H3 Not Detected (NOT DETECT); Influenza B Not Detected (NOT DETECT); Mycoplasma pneumoniae Not Detected (NOT DETECT); Parainfluenza Virus 1 Not Detected (NOT DETECT); Parainfluenza Virus 2 Not Detected (NOT DETECT); Parainfluenza Virus 3 Not Detected (NOT DETECT); Parainfluenza Virus 4 Not Detected (NOT DETECT); Respiratory Syncytial Virus Not Detected (NOT DETECT); SARS-Cov-2 (COVID-19), BioFire Not Detected (NOT DETECT)
--- NOTE | 2022-10-01 11:50 | NUR ---
CARE ASSUMPTION PT MINIMALLY RESPONSIVE UPON CARE ASSUMPTION. ASSESSED PT IN AM W/ MEDICAL STUDENT. PT NON VERBAL. WHEN ASSESSING PUPILS, PT CLOSES EYES TIGHTLY, TRIES TO GET AWAY FROM LIGHT. WHEN REPOSITIONING EXTREMETIES, PT PULLS AWAY. DOES NOT FOLLOW COMMANDS. SP02>90% ON 4L NC. TEMP AFEBRILE AFTER TYLENOL, ICE PACKS. AT APPROX 1100, CAMERA NOTIFIED THAT PT HAD LEGS OUT OF BED, SITTING UP. UPON ENTERING ROOM, PT BEGAN STANDING. PT STATES, "HI!" AND THAT HE HAS TO VOID. NOTIFIED PT HE HAS A SHARMA CATHETER IN AND CAN FREELY VOID. PT STATES, "OH, OK!" AND SITS DOWN ON BED. FOLLOWED COMMANDS TO LAY BACK INTO BED. EDUCATED PT W/ TEACH BACK METHOD ABOUT CALL LIGHT AND RED BUTTON. PT ABLE TO STATE NAME, LOCATION, BUT NOT . CALL LIGHT IN REACH, CAMERA ON.
--- NOTE | 2022-10-01 14:17 | NUR ---
I was approached this morning by a man and woman standing outside pt's door. They asked for information on the pt, specifically "what's wrong with him", and "if he's going to be ok". They identified as his neighbors, and state they are the ones who "called 911" for him. I explained I'm unable to give them information at this time, as I am not familiar with the pt or his situation, but that I will call them with information if I am able. Pt was unable to speak, so I did call his mom, who is listed as his NOK. Noemi Keita declines friend Ly to be given info about pt, but ok for Ly to call her. Ly given noemi Keita's number.
[2022-10-01 19:08] LABS: Bun/Creatinine Ratio 38.6 (12.0-20.0); Calcium, Blood 7.7 mg/dL (8.5-10.1); Creatinine, Blood 0.52 mg/dL (0.60-1.20); Potassium, Blood 3.6 mmol/L (3.5-5.5)
--- NOTE | 2022-10-02 01:50 | NUR ---
PER NURSES REQUEST, PATIENT WAS FED THICKEN TOMATO SOUP. TOLERATED WELL. PATIENT DID NOT COUGH OR SHOW ANY SIGNS OF ASPIRATION. BED ANGLED AT 90 DEGREES WHILE EATING. RN IN ROOM AT BEDSIDE OFTEN TO CHECK ON PROGRESS. NO CONCERNS AT THIS TIME.
[2022-10-02 04:08] LABS: Hematocrit 33.7 % (37.0-53.0); Hemoglobin 12.3 g/dL (13.5-17.5); Mean Corpuscular HGB 32.8 pg (26.0-34.0); Mean Corpuscular HGB Conc 36.5 g/dL (31.5-36.5); Mean Corpuscular Volume 90 fL (80-100); Mean Platelet Volume 10.2 fL (9.1-12.4); Platelet Count 311 K/mm3 (150-400); RDW Coefficient Variation 12.6 % (11.7-14.2); RDW Standard Deviation 41.2 fL (35.1-46.3); Red Blood Cell Count 3.75 M/mm3 (4.30-5.90); White Blood Cell Count 15.41 K/mm3 (4.00-11.30)
[2022-10-02 04:38] LABS: Albumin, Blood 1.4 g/dL (3.4-5.0); Albumin/Globulin Ratio 0.4 (0.8-1.8); Bilirubin, Total 0.5 mg/dL (0.1-1.0); Bun/Creatinine Ratio 34.8 (12.0-20.0); Calcium, Blood 7.6 mg/dL (8.5-10.1); Creatinine, Blood 0.57 mg/dL (0.60-1.20); Potassium, Blood 3.4 mmol/L (3.5-5.5); Total Protein, Blood 5.4 g/dL (6.4-8.2)
[2022-10-02 05:20] LABS: BAND PERCENT MAN 2 % (0-8); BASOPHILS PERCENT MAN 0 % (0-2); EOSINOPHILS PERCENT MAN 0 % (0-6); LYMPHOCYTES ABSOLUTE MAN 0.61 K/mm3 (0.84-5.20); LYMPHOCYTES PERCENT MAN 4 % (21-46); MONOCYTES PERCENT MAN 0 % (4-13); NEUTROPHILS ABSOLUTE MAN 14.79 K/mm3 (1.96-9.15); SEG NEUTROPHILS PERCENT MAN 94 % (41-73); TOTAL CELLS COUNTED 100
--- NOTE | 2022-10-02 06:49 | NUR ---
SHIFT SUMMARY PT HAS BEEN A&O X2, HE HAS USED HIS CALL LIGHT A FEW TIMES AND IS ABLE TO EXPRESS NEEDS, PT HAS C/O SEVERE HUNGER AND IS BECOMING AGITATED. PT WAS GIVEN YOGURT AND THICKENED TOMATO SOUP THROUGH THE NIGHT, HE WAS ABLE TO SWALLOW WITH NO PROBLEMS. CIWA HAS BEEN INCREASING, LATEST SCORE OF 15 NOTED THIS AM, 50 MG PO LIBRIUM GIVEN X1, PT IS HYPERTENSIVE, RESP UNLABORED, LUNGS REMAIN COARSE, ON 3L O2 NC, SPO2 >94%, Q2 TURNS, MED STUDENT IN THE ROOM WITH PT AT THIS TIME, REPORT GIVEN TO ONCOMING RN, CALL LIGHT IN REACH.
--- NOTE | 2022-10-02 17:24 | NUR ---
SHIFT SUMMARY PT ALERT, ORIENTED X3. ABLE TO MAKE NEEDS KNOWN. PT FEBRILE, ICE PACKS APPLIED. SP02>90% ON 3L NC. PT C/O OF LOWER BACK PAIN, LIDOCAINE PATCH APPLIED PER EMAR. SHARMA DC'D THIS SHIFT, PT ABLE TO VOID POST SHARMA. NO BM THIS SHIFT. CIWAS HAVE AVERAGED 12 THIS SHIFT, MOSTLY D/T HEADACHES AND HALLUCINATIONS. PT STATES, " WHY ARE THERE COOKIES ON THE WALL". mEDICATED W/ LIBRIUM X2 THIS SHIFT. SPEECH THERAPY IN ROOM THIS AM TO ASSESS PT. PT OKAYED TO HAVE [facility] SOFT DIET, PILLS W/ APPLESAUCE. MD ARCE IN ROOM THIS AM, PT CHANGED TO MED/TELE STATUS. ABX INFUSED PER EMAR. PT HAS FEMALE VISITOR IN ROOM CURRENTLY. CALL LIGHT IN REACH.
--- NOTE | 2022-10-03 05:27 | NUR ---
SHIFT SUMMARY PT ORIENTED X3, ABLE TO MAKE NEEDS KNOWN BUT FORGETS TO USE THE CALL LIGHT, CIWA 8-9, LIBRIUM GIVEN X1, PT REMAINS HYPERTENSIVE, ST/SR, FEBRILE. O2 TITRATED THROUGH THE NIGHT, SPO2 >92% ON RA, LUNG SOUNDS COARSE, DB&C ENC, PRODUCTIVE COUGH. ABD U/S DONE, RESULTS PENDING, [facility] SOFT DIET, PT WAS GIVEN THICKENED FLUIDS DUE TO EXCESSIVE COUGHING WHILE DRINKING MILK, VOIDING WNL, INCONTINENT AT TIMES, BRIEF CHANGED PRN, Q2 TURNS PROVIDED. CALL LIGHT IN REACH, WCTM & REPORT TO ONCOMING RN.
[2022-10-03 07:05] LABS: BASOPHILS ABSOLUTE AUTO 0.06 K/mm3 (0.00-0.23); BASOPHILS PERCENT AUTO 0 % (0-2); EOSINOPHILS ABSOLUTE AUTO 0.01 K/mm3 (0.00-0.68); EOSINOPHILS PERCENT AUTO 0 % (0-6); Hematocrit 33.1 % (37.0-53.0); IMMATURE GRAN ABSOLUTE AUTO 0.32 K/mm3 (0.00-0.10); IMMATURE GRAN PERCENT AUTO 2 % (0-1); LYMPHOCYTES ABSOLUTE AUTO 0.65 K/mm3 (0.84-5.20); LYMPHOCYTES PERCENT AUTO 4 % (21-46); MONOCYTES ABSOLUTE AUTO 0.14 K/mm3 (0.16-1.47); MONOCYTES PERCENT AUTO 1 % (4-13); Mean Corpuscular HGB 32.9 pg (26.0-34.0); Mean Corpuscular HGB Conc 36.3 g/dL (31.5-36.5); Mean Corpuscular Volume 91 fL (80-100); NEUTROPHILS ABSOLUTE AUTO 13.66 K/mm3 (1.96-9.15); NEUTROPHILS PERCENT AUTO 92 % (41-73); Platelet Count 413 K/mm3 (150-400); RDW Standard Deviation 43.1 fL (35.1-46.3); Red Blood Cell Count 3.65 M/mm3 (4.30-5.90); White Blood Cell Count 14.84 K/mm3 (4.00-11.30)
[2022-10-03 07:18] LABS: Albumin, Blood 1.5 g/dL (3.4-5.0); Albumin/Globulin Ratio 0.4 (0.8-1.8); Bilirubin, Total 0.5 mg/dL (0.1-1.0); Bun/Creatinine Ratio 24.5 (12.0-20.0); Calcium, Blood 7.5 mg/dL (8.5-10.1); Creatinine, Blood 0.61 mg/dL (0.60-1.20); Globulin, Blood 4.2 g/dL (2.2-4.0); Potassium, Blood 3.5 mmol/L (3.5-5.5); Total Protein, Blood 5.7 g/dL (6.4-8.2)
[2022-10-03 07:51] LABS: International Normalized Ratio 1.04; Prothrombin Time Results 10.9 Sec (9.7-11.5)
--- NOTE | 2022-10-03 17:42 | NUR ---
SHIFT SUMMARY PT IS ALERT TO SELF, AT TIMES PLACE, AND AT TIMES SITUATION. HIS CONFUSION HAS FLUCUATED DURING SHIFT. SEE CIWA SCORING FOR ALCOHOL WITHDRAW ASSESSMENT AND EMAR FOR INTERVENTION. HE HAS BEEN BEDREST W/ Q2 TURNING TO PREVENT SKIN BREAKDOWN. BP WAS ELEVATED AT 1600 VITALS W/ SBP 169 AND A MAP OF 140. DR. CASILLAS MADE AWARE, SEE EMAR FOR BP MANAGEMENT. UPON REASSESSMENT BP 126/95. HR STABLE, PT WAS NOTED TO HAVE PROLONGED QT INTERVAL PER TELE REPORT. LAST QT INTERVAL PRIOR TO LIBRIUM ADMINISTRATION AT 1712 WAS .[address] CASILLAS IS ALSO AWARE OF PROLONGED QT. PT HAS BEEN AFEBRILE DURING SHIFT. PG IN [place] IS INFUSING ZOSYN PER EMAR ORDERS. PT HAS BEEN A FEEDER DURING SHIFT DUE TO PAIN/LACK OF MOBILITY IN BILAT SHOULDERS. PT HAS REPORTED PAIN IN BACK DURING REPOSITIONING/BOOSTING IN BED. HE DENIED HEAT THERAPY BUT HAS A LIDOCAINE PATCH IN PLACE. MEPILEX DRESSINGS ARE IN PLACE OVER COCCYX WELL R ELBOW. PT'S MOTHER WAS AT BEDSIDE DURING SHIFT. ATTENDS ARE IN PLACE AND ARE DRY/CLEAN. BED ALARM IS ON, CALL LIGHT IS IN REACH. SEIZURE PRECAUTIONS ALSO IN PLACE.
[2022-10-04 04:14] LABS: BASOPHILS ABSOLUTE AUTO 0.06 K/mm3 (0.00-0.23); BASOPHILS PERCENT AUTO 0 % (0-2); EOSINOPHILS ABSOLUTE AUTO 0.02 K/mm3 (0.00-0.68); EOSINOPHILS PERCENT AUTO 0 % (0-6); Hematocrit 32.7 % (37.0-53.0); Hemoglobin 11.8 g/dL (13.5-17.5); IMMATURE GRAN ABSOLUTE AUTO 0.42 K/mm3 (0.00-0.10); IMMATURE GRAN PERCENT AUTO 2 % (0-1); LYMPHOCYTES ABSOLUTE AUTO 0.77 K/mm3 (0.84-5.20); LYMPHOCYTES PERCENT AUTO 5 % (21-46); MONOCYTES ABSOLUTE AUTO 0.17 K/mm3 (0.16-1.47); MONOCYTES PERCENT AUTO 1 % (4-13); Mean Corpuscular HGB 33.2 pg (26.0-34.0); Mean Corpuscular HGB Conc 36.1 g/dL (31.5-36.5); Mean Corpuscular Volume 92 fL (80-100); Mean Platelet Volume 9.9 fL (9.1-12.4); NEUTROPHILS ABSOLUTE AUTO 15.72 K/mm3 (1.96-9.15); NEUTROPHILS PERCENT AUTO 92 % (41-73); Platelet Count 508 K/mm3 (150-400); RDW Coefficient Variation 13.2 % (11.7-14.2); RDW Standard Deviation 44.5 fL (35.1-46.3); Red Blood Cell Count 3.55 M/mm3 (4.30-5.90); White Blood Cell Count 17.16 K/mm3 (4.00-11.30)
[2022-10-04 04:39] LABS: Albumin, Blood 1.5 g/dL (3.4-5.0); Anion Gap 5 mmol/L (6-16); Blood Urea Nitrogen 13 mg/dL (8-24); Bun/Creatinine Ratio 23.3 (12.0-20.0); CO2, Blood 27 mmol/L (21-32); Calcium, Blood 7.6 mg/dL (8.5-10.1); Chloride, Blood 109 mmol/L (98-108); Creatinine, Blood 0.56 mg/dL (0.60-1.20); Glomerular Filtration Rate 112 (60-); Glucose, Blood 120 mg/dL (70-99); Phosphorus, Blood 3.4 mg/dL (2.5-4.9); Potassium, Blood 3.4 mmol/L (3.5-5.5); Sodium, Blood 141 mmol/L (136-145)
--- NOTE | 2022-10-04 05:27 | NUR ---
SHIFT SUMMARY ASSUMED CARE OF PT AT 1900. PT IS A/OX2. PT KNOWS WHO HE IS AND WHERE BUT NOTHING ELSE. HEART SOUNDS REGULAR. LUNG SOUNDS COARSE. PT COUGHED UP THICK BROWN SPUTUM. SAMPLE SENT TO LAB. PT WAS INCONTIENT T/O THE NIGHT. PT WAS PAINFUL TO MOVE. CIWAH WERE NEGATIVE. PT DID NOT SLEEP AT ALL AND ASKED FOR FOOD CONSTANTLY. PT TURNED Q2
--- NOTE | 2022-10-04 16:52 | NUR ---
SHIFT SUMMARY PT IS ALERT AND ORIENTED TO SELF AND PLACE. HE OFTEN TIMES APPEARS CONFUSED BUT IS ABLE TO FOLLOW COMMANDS AND MAKE HIS NEEDS KNOWN TO STAFF WHEN STAFF IS IN ROOM, HE DOES NOT USE HIS CALL LIGHT. BP AND HR STABLE, SPO2 MAINTAINED >95% VIA ROOM AIR, HE HAS A MOIST PRODUCTIVE COUGH NOTED. COUGHING NOTED AFTER PT TAKES SIPS OF THICKENED LIQUID, THIS WAS COMMUNICATED TO SPEECH THERAPIST AND ORDERS FOR BARRIUM SWALLOW EVAL PLACED. HE HAS APPEARED PAINFUL WHEN REPOSITIONING OR WHEN ASSISTING TO GET UP TO CHAIR BUT HAS NOT REPORTED PAIN NOR REQUESTED PAIN MEDICATION. HE HAS DENIED USE OF HEAT THERAPY FOR PAIN MANAGEMENT WELL. HE HAS BEEN UP TO CHAIR 2 TIMES DURING SHIFT A 2 PERSON ASSIST. HE APPEARS WEAK AND UNSTEADY, PHYSICAL THERAPY EVALUATED PT TODAY. THIS NURSE CHANGED THE MEPILEX DRESSINGS ON R ELBOW WELL MEPILEX ON COCCYX, SEE CHART FOR UPDATED PHOTOS. PT HAS NOT HAD A BM SINCE ADMISSION BUT DENIES ABD PAIN. CALL PLACED W/ NO ANSWER W/ INTENTIONS OF REQUETING BOWEL CARE AT APPROX. 1700. WILL PASS ONTO NOC RN IF UNABLE TO REACH DR. PT NOW APPEARS TO BE SLEEPING COMFORTABLY IN BED, BED ALARM ON. WILL CONTINUE TO MONITOR UNTIL REPORT GIVEN.
[2022-10-04] MEDS ORDERED: TAMSULOSIN HCL0.4 M1 PO (22:19)
[2022-10-04] MEDS ORDERED: HYDROCHLOROTH12.5 MG PO (22:20)
[2022-10-04] MEDS ORDERED: OMEP20ER PO (22:20)
[2022-10-04] MEDS ORDERED: B-1100 M1 PO (22:21)
[2022-10-04] MEDS ORDERED: STIOLTO RESPIMAT4 G1 INH (22:22)
[2022-10-04] MEDS ORDERED: ECOTRIN325 MG PO (22:23)
--- NOTE | 2022-10-05 04:15 | NUR ---
SHIFT SUMMARY 62 YR M ADMITTED ON 09/30/22 FOR TOXIC METABOLIC ENCEPHALOPATHY. FULL CODE. NO ACUTE CHANGES THIS SHIFT. PT ARRIVED TO MED UNIT AT 2205. HE IS A&O X 2-3 AND IS PLEASANT AND COOPERATIVE. HE HAS A MOIST PRODUCTIVE COUGH. PT C/O THIRST BUT IS ON ASPIRATION CAUTIONS. HE DOES NOT DO WELL DRINKING OUT OF A CUP, EVEN WITH HONEY THICKENED LIQUIDS HE HAS COUGHING FITS. HE DOES, HOWEVER, DO WELL WITH BEING SPOON FED THE SAME LIQUIDS. PLAN IS FOR A BARIUM SWALLOW TODAY. HIS SPEECH IS MUMBLED AND AT TIMES HARD TO UNDERSTAND BUT HE IS ABLE TO MAKE HIS NEEDS KNOWN. HE C/O BACK PAIN WITH REPOSITIONING.
[2022-10-05 05:02] LABS: BASOPHILS ABSOLUTE AUTO 0.02 K/mm3 (0.00-0.23); BASOPHILS PERCENT AUTO 0 % (0-2); EOSINOPHILS ABSOLUTE AUTO 0.06 K/mm3 (0.00-0.68); EOSINOPHILS PERCENT AUTO 0 % (0-6); Hematocrit 28.3 % (37.0-53.0); Hemoglobin 9.9 g/dL (13.5-17.5); IMMATURE GRAN ABSOLUTE AUTO 0.43 K/mm3 (0.00-0.10); IMMATURE GRAN PERCENT AUTO 3 % (0-1); LYMPHOCYTES ABSOLUTE AUTO 0.83 K/mm3 (0.84-5.20); LYMPHOCYTES PERCENT AUTO 6 % (21-46); MONOCYTES ABSOLUTE AUTO 0.25 K/mm3 (0.16-1.47); MONOCYTES PERCENT AUTO 2 % (4-13); Mean Corpuscular HGB 32.8 pg (26.0-34.0); Mean Corpuscular Volume 94 fL (80-100); Mean Platelet Volume 10.5 fL (9.1-12.4); NEUTROPHILS ABSOLUTE AUTO 13.57 K/mm3 (1.96-9.15); NEUTROPHILS PERCENT AUTO 90 % (41-73); Platelet Count 423 K/mm3 (150-400); RDW Coefficient Variation 13.5 % (11.7-14.2); RDW Standard Deviation 46.1 fL (35.1-46.3); Red Blood Cell Count 3.02 M/mm3 (4.30-5.90); White Blood Cell Count 15.16 K/mm3 (4.00-11.30)
[2022-10-05 05:27] LABS: Albumin, Blood 1.3 g/dL (3.4-5.0); Anion Gap 4 mmol/L (6-16); Blood Urea Nitrogen 13 mg/dL (8-24); Bun/Creatinine Ratio 25.5 (12.0-20.0); CO2, Blood 25 mmol/L (21-32); Chloride, Blood 116 mmol/L (98-108); Creatinine, Blood 0.51 mg/dL (0.60-1.20); Glomerular Filtration Rate 115 (60-); Glucose, Blood 103 mg/dL (70-99); Phosphorus, Blood 3.4 mg/dL (2.5-4.9); Potassium, Blood 3.7 mmol/L (3.5-5.5); Sodium, Blood 145 mmol/L (136-145)
--- NOTE | 2022-10-05 13:38 | NUR ---
pt up in chair. tremulous pale and fatigued. Wanting to eat. My still be having some withdrawls. pt able to answer some questions. wants to eat. Review of pt with speech theapist, attemtped to call pt mother. No answer from mother. Will continue to try contacting her. Pt kps score is 40%. Pt states his mother is his suppot person. Asked if she would be his decision maker he stated she has not in the past. My need cognative eval will discuss code status. Pt kps score is 40%. Pt does not regain swallow or gets sicker would be canidate for hospice. Pt hisgh risk for sudden or frequent readmissions if he returns home.
--- NOTE | 2022-10-05 16:53 | NUR ---
SHIFT SUMMARY PTN WEAK AND 2-ASSIST WITH WALKER AND GAIT BELT TO TRANSFER FROM BED TO CHAIR AND BACK. PTN HAD SPEECH THERAPY TODAY WITH BARIUM SWALLOW STUDY THAT SHOWED WEAKNESS WITH SWALLOWING AND INABILITY TO CLEAR THROAT. PTN MADE NPO AT THAT TIME. NOTIFIED. ORDERS PLACED. PTN HERE SINCE 09/30. PTN WITH R LOWER QUADRANT ABDOMINAL AORTIC ANYERISM THAT WILL BE ADDRESSED OUTPATIENT. PTN ALSO WITH A SCAB-LIKE AREA TO LEFT UPPER PUBIC AREA, UNIDENTIFIED. COCCYX REDDENED, BLANCHING WITH SKIN TEAR TO L UPPER POSTERIOR THIGH AREA, COVERED WITH MEPILEX. L ELBOW REDDENED, BUT NO BREAK IN SKIN. THIS WAS NO RECOVERED THERE WAS NO BREAK. UPPER L BACK WITH OPEN ROUND AREA WITH NO DRAINAGE, BUT RAW LOOKING PINK SKIN, UNIDENTIFIED, COVERED WITH MEPILEX. SPEECH THERAPY ALSO CONTACTED PALLIATIVE CARE. SPEECH THERAPY WILL BE BACK WITH PTN TOMORROW. IV FLUIDS AND ANTIBIOTICS INFUSING. PTN RESTING COMFORTABLY AT THIS TIME. CONTINUE TO MONITOR.
--- NOTE | 2022-10-05 18:04 | NUR ---
Extensive conversation with patients mother she is amendable to being decision maker if he is to sick to make decisions. Review of his needs and pronosis. pt very fragile and ill. Review of ciwa with nursing .
--- NOTE | 2022-10-06 04:09 | NUR ---
SHIFT SUMMARY; NO CHANGES OVERNIGHT. THE PT RESTED IN BED T/O THE NIGHT. THE PT IS ALERT TO SELF AND SITUATION ONLY. CIWAS DONE, ALL 3 SCORES THIS SHIFT WERE <3. MEPILEX ON PTS L SHOULDER REMAINS INTACT. MEPILEX PLACED ON THE PTS COCCYX A PROECTIVE MEASURE. THE PT REMIANS FRUSTRATED ABOUT BEING NPO, STATES HE JUST WANTS TO DRINK SOMETHING. ORAL SWABS OFFERED UPON EVERY ENTRY INTO THE PTS ROOM. PT DENIES ANY PAIN, SOB OR CHEST PAIN/PRESSURE THIS SHIFT. CURRENTLY THE PT IS SLEEPING IN THE BED WITH THE BED IN THE LOWEST POSITION, THE SEIZURE PADS REMAIN IN PLACE AND THE CALL LIGHT IS WITHIN REACH.
[2022-10-06 04:53] LABS: BASOPHILS ABSOLUTE AUTO 0.03 K/mm3 (0.00-0.23); BASOPHILS PERCENT AUTO 0 % (0-2); EOSINOPHILS ABSOLUTE AUTO 0.04 K/mm3 (0.00-0.68); EOSINOPHILS PERCENT AUTO 0 % (0-6); Hematocrit 32.6 % (37.0-53.0); Hemoglobin 11.2 g/dL (13.5-17.5); IMMATURE GRAN ABSOLUTE AUTO 0.23 K/mm3 (0.00-0.10); IMMATURE GRAN PERCENT AUTO 2 % (0-1); LYMPHOCYTES ABSOLUTE AUTO 0.71 K/mm3 (0.84-5.20); LYMPHOCYTES PERCENT AUTO 5 % (21-46); MONOCYTES ABSOLUTE AUTO 0.26 K/mm3 (0.16-1.47); MONOCYTES PERCENT AUTO 2 % (4-13); Mean Corpuscular HGB 32.7 pg (26.0-34.0); Mean Corpuscular HGB Conc 34.4 g/dL (31.5-36.5); Mean Corpuscular Volume 95 fL (80-100); Mean Platelet Volume 9.4 fL (9.1-12.4); NEUTROPHILS ABSOLUTE AUTO 12.36 K/mm3 (1.96-9.15); NEUTROPHILS PERCENT AUTO 91 % (41-73); Platelet Count 539 K/mm3 (150-400); RDW Coefficient Variation 13.6 % (11.7-14.2); RDW Standard Deviation 47.7 fL (35.1-46.3); Red Blood Cell Count 3.43 M/mm3 (4.30-5.90); White Blood Cell Count 13.63 K/mm3 (4.00-11.30)
[2022-10-06 05:13] LABS: Albumin, Blood 1.5 g/dL (3.4-5.0); Anion Gap 6 mmol/L (6-16); Blood Urea Nitrogen 13 mg/dL (8-24); Bun/Creatinine Ratio 20.7 (12.0-20.0); CO2, Blood 26 mmol/L (21-32); Chloride, Blood 110 mmol/L (98-108); Creatinine, Blood 0.63 mg/dL (0.60-1.20); Glomerular Filtration Rate 108 (60-); Glucose, Blood 107 mg/dL (70-99); Phosphorus, Blood 4.2 mg/dL (2.5-4.9); Potassium, Blood 3.7 mmol/L (3.5-5.5); Sodium, Blood 142 mmol/L (136-145)
[2022-10-06 08:10] LABS: HIV AB/P24 AG SCREEN Non Reactive (Non Reactive)
--- NOTE | 2022-10-06 09:30 | NUR ---
RN GAVE REPORT TO ONCOMING NURSE
--- NOTE | 2022-10-06 17:25 | NUR ---
END OF SHIFT: PATIENT CONTINUES TO REPORT FRUSTRATION OVER NOT BEING ABLE TO EAT OR DRINK. PATIENT IS MORE ALERT TODAY AND HIS SPEECH IS CLEARER. PATIENT DID ROM EXERCISES WITH THE RN AND PERFORMED SWALLOWING EXERCISES TWICE WITH THE RN. PATIENT UP TO THE RECLINER THIS AFTERNOON, BUT DID REFUSE WORKING WITH PT. PATIENT IS PAINFUL DURING REPOSITIONING, BUT OTHERWISE DENIED NEED FOR PAIN INTERVENTIONS. PATIENT CONTINUES TO BE INCONTINENT OF LIGHT, YELLOW URINE.
--- NOTE | 2022-10-07 04:09 | NUR ---
SHIFT SUMMARY; NO ACUTE CHANGES OVERNIGHT. THE PT IS MORE ALERT THIS EVENING. THE PT IS NOT HAPPY ABOUT HIS NPO STATUS. THE PT TRIES TO GET WATER OR APPLESAUCE FREQUENTLY T/O THE SHIFT. FREQUENT MOUTH SWABS AND MOUTH MOISTURIZER ARE OFFERED TO THE PT DUE TO THE PT FREQUENTLY STATING HOW DRY HIS MOUTH AND THROAT ARE. DAILY SWALLOW EVALS ARE ORDERED WELL THE PT WAS LEFT WITH SWALLOWING EXERCISES IN WHICH HE IS TO PRACTICE TID. THE PT IS NOT SO STIFF/RIGID THIS AM. THE PT OVERALL APPEARS MORE RELAXED. THE PTS VOICE IS VERY HOARSE AND SOFT, THE PT NEEDS TO DEEP COUGH BUT THE PTS COUGH EFFORT IS VERY WEAK. THE PT DENIES PAIN, SOB, CHEST PAIN OR PRESSURE THIS SHIFT. CURRENTLY THE PT IS RESTING IN BED WITH THE BED IN THE LOWEST POSITION AND THE CALL LIGHT AT BEDSIDE.
[2022-10-07 05:49] LABS: BASOPHILS ABSOLUTE AUTO 0.03 K/mm3 (0.00-0.23); BASOPHILS PERCENT AUTO 0 % (0-2); EOSINOPHILS ABSOLUTE AUTO 0.02 K/mm3 (0.00-0.68); EOSINOPHILS PERCENT AUTO 0 % (0-6); Hematocrit 32.6 % (37.0-53.0); IMMATURE GRAN ABSOLUTE AUTO 0.14 K/mm3 (0.00-0.10); IMMATURE GRAN PERCENT AUTO 1 % (0-1); LYMPHOCYTES PERCENT AUTO 5 % (21-46); MONOCYTES ABSOLUTE AUTO 0.26 K/mm3 (0.16-1.47); MONOCYTES PERCENT AUTO 2 % (4-13); Mean Corpuscular HGB 32.3 pg (26.0-34.0); Mean Corpuscular HGB Conc 33.7 g/dL (31.5-36.5); Mean Corpuscular Volume 96 fL (80-100); Mean Platelet Volume 9.7 fL (9.1-12.4); NEUTROPHILS ABSOLUTE AUTO 13.54 K/mm3 (1.96-9.15); NEUTROPHILS PERCENT AUTO 92 % (41-73); Platelet Count 548 K/mm3 (150-400); RDW Coefficient Variation 13.7 % (11.7-14.2); RDW Standard Deviation 47.7 fL (35.1-46.3); Red Blood Cell Count 3.41 M/mm3 (4.30-5.90); White Blood Cell Count 14.79 K/mm3 (4.00-11.30)
[2022-10-07 06:04] LABS: Bun/Creatinine Ratio 23.5 (12.0-20.0); Calcium, Blood 8.1 mg/dL (8.5-10.1); Creatinine, Blood 0.6 mg/dL (0.60-1.20); Potassium, Blood 3.4 mmol/L (3.5-5.5)
--- NOTE | 2022-10-07 11:11 | NUR ---
MOM VISITED PT'S BEDSIDE AND HAD A PLAN OF CARE CONVERSATION WITH DR. ARCE AND DR. GEIGER. EXPLAINED RISKS/BENEFITS OF EATING AND THE CONCERN FOR ASPIRATION. DECIDED TO TRY A PUREE DIET WITH HONEY THICK LIQUIDS. PT GIVEN SWALLOWING EXERCISES TO DO. RN UPDATED ORDERS.
--- NOTE | 2022-10-07 19:19 | NUR ---
SHIFT SUMMARY PT'S DIET PROGRESSED TO PUREE WITH HONEY THICK LIQUIDS. LR INFUSING AT 100ML/HR INTO RIGHT FA IV, ALSO ABX INFUSING INTO [place] POWERGLIDE. ROOM AIR. CONTINENT OF URINE. PT IS ALERT TO SELF AND FAMILY. SITUATIONAL ORIENTATION WAXES AND WANES, HE WAS TALKING ABOUT BEING OPERATED ON, AND WOKE UP SEVERAL TIMES THINKING IT WAS MORNING. CONTINENT, USES URINAL WITH ASSISTANCE. MAXIMUM ASSISTANCE, OVERHEAD LIFT PT. AWAITING PLACEMENT.
--- NOTE | 2022-10-08 05:44 | NUR ---
SHIFT SUMMARY PT ALERT TO SELF- PT UP TO CHAIR AT BEGINNING OF SHIFT- PT DRANK HONEY THICKENED LIQUIDS WITHOUT PROBLEMS- PT INCONTIENT OF URINE- PT ABLE TO TURN SELF IN BED-LR INFUSING AT 100ML/HR RIGHT UPPER POWERGLIDE- ZOSYN INFUSED IN RIGHT LOWER FOREARM WITHOUT PROBLEMS- PT COUGHING T/O NIGHT- PT HIGH RISK FOR ASPIRATION PER SPEECH THERAPIST NOTES-MONITORED PT WHILE DRINKING HONEY THICK FLUIDS- PT TAKES TO BIG OF DRINKS AND NEEDS TO BE MONITORED WHEN DRINKIN- BED LOW POSITION, CALL LIGHT WITHIN PLACE, BED ALARM IN PLACE
--- NOTE | 2022-10-08 17:28 | NUR ---
DAYSHIFT SUMMARY No acute changes to patient status. Patient eating soft diet, staff supervison during meals for safety. Patients takes pill whole w/ applesauce. Tolerated PO intake, no coughing after swallowing observed. Worked with PT today, reported dizziness with activity. VSS. Will continue plan of care, awaiting discharge planning.
--- NOTE | 2022-10-09 05:56 | NUR ---
SHIFT SUMMARY PT LAYING IN BED DURING BEDSIDE ROUNDS- PT WAS COUGHING - CHECKED ON PT AND HE WAS LAYING FLAT AND DRINKING HONEY THICK LIQUIDS WHILE LAYING- REMOVED LIQUIDS- SPOKE WITH DR. MARTINEZ RE: FEBRILE- GAVE NOW DOSE 1000MG TYLENOL- PT NEEDS TO BE SUPERVISED EATING AND DRINKING- PT AFEBRILE WHEN RECHECKED- PT REQUESTED APPLE JUICE IN THE NIGHT SPOONED HONEY THICK JUICE- PT TOLERATED WELL- NO S/S ASPIRATION- PT WOKE UP AT 0515 AND REQUESTED TYLENOL FOR [place] -PT SITTING UP WATCHING TV- GAVE
[2022-10-09 06:08] LABS: BASOPHILS ABSOLUTE AUTO 0.03 K/mm3 (0.00-0.23); BASOPHILS PERCENT AUTO 0 % (0-2); EOSINOPHILS ABSOLUTE AUTO 0.06 K/mm3 (0.00-0.68); EOSINOPHILS PERCENT AUTO 0 % (0-6); Hematocrit 31.1 % (37.0-53.0); Hemoglobin 10.6 g/dL (13.5-17.5); IMMATURE GRAN ABSOLUTE AUTO 0.07 K/mm3 (0.00-0.10); IMMATURE GRAN PERCENT AUTO 1 % (0-1); LYMPHOCYTES ABSOLUTE AUTO 1.06 K/mm3 (0.84-5.20); LYMPHOCYTES PERCENT AUTO 8 % (21-46); MONOCYTES ABSOLUTE AUTO 0.29 K/mm3 (0.16-1.47); MONOCYTES PERCENT AUTO 2 % (4-13); Mean Corpuscular HGB 32.6 pg (26.0-34.0); Mean Corpuscular HGB Conc 34.1 g/dL (31.5-36.5); Mean Corpuscular Volume 96 fL (80-100); Mean Platelet Volume 9.4 fL (9.1-12.4); NEUTROPHILS ABSOLUTE AUTO 12.53 K/mm3 (1.96-9.15); NEUTROPHILS PERCENT AUTO 89 % (41-73); Platelet Count 383 K/mm3 (150-400); RDW Coefficient Variation 13.5 % (11.7-14.2); RDW Standard Deviation 47.9 fL (35.1-46.3); Red Blood Cell Count 3.25 M/mm3 (4.30-5.90); White Blood Cell Count 14.04 K/mm3 (4.00-11.30)
[2022-10-09 06:26] LABS: Albumin, Blood 1.4 g/dL (3.4-5.0); Anion Gap 5 mmol/L (6-16); Blood Urea Nitrogen 10 mg/dL (8-24); Bun/Creatinine Ratio 17.5 (12.0-20.0); CO2, Blood 28 mmol/L (21-32); Calcium, Blood 7.9 mg/dL (8.5-10.1); Chloride, Blood 105 mmol/L (98-108); Creatinine, Blood 0.57 mg/dL (0.60-1.20); Glomerular Filtration Rate 112 (60-); Glucose, Blood 127 mg/dL (70-99); Phosphorus, Blood 4.1 mg/dL (2.5-4.9); Potassium, Blood 3.4 mmol/L (3.5-5.5); Sodium, Blood 138 mmol/L (136-145)
--- NOTE | 2022-10-09 17:11 | NUR ---
DAYSHIFT SUMMARY No acute changes to patient status this shift. Patient AOx3, sitting up in bed, pleasant & cooperative with cares. Soft BP this morning held Lisinopril, saturations stable on RA, afebrile. Patient sitting upright & supervised for meals. Lungs sounded diminished/rhonchi. Oral care with suction performed. Potassium chloride ordered this morning x1 dose. IV Zosyn administred. RN removed midline catheter and IV in right arm. Transportation came at 1700, patient left unit at 1705.
== END 2022-10-09 17:10 | DRG 871 ==
LOC: ER 13:42 → MEDS 18:50 → PCU 18:50 → MEDS 10-04 22:03
PROVIDERS: Family Medicine; Family Medicine Adult Medicine; Student in an Organized Health Care Education/Training Program; ADMIT Hospitalist
PROC: 3E03329 Introduction of Other Anti-infective into Peripheral Vein, Percutaneous Approach (ICD-10-PCS; principal; 2022-09-30)
PROC: HZ2ZZZZ Detoxification Services for Substance Abuse Treatment (ICD-10-PCS; 2022-09-30)
DX: A41.9 Sepsis, unspecified organism (principal); G92.8 Other toxic encephalopathy; J18.9 Pneumonia, unspecified organism; J96.01 Acute respiratory failure with hypoxia; I21.A1 Myocardial infarction type 2; E87.1 Hypo-osmolality and hyponatremia; F10.231 Alcohol dependence with withdrawal delirium; E87.20 Acidosis, unspecified; Z20.822 Contact with and (suspected) exposure to COVID-19; Z66 Do not resuscitate; I10 Essential (primary) hypertension; R65.20 Severe sepsis without septic shock; M54.50 Low back pain, unspecified; E78.5 Hyperlipidemia, unspecified; R94.31 Abnormal electrocardiogram [ECG] [EKG]; F17.210 Nicotine dependence, cigarettes, uncomplicated; I47.9 Paroxysmal tachycardia, unspecified; I72.4 Aneurysm of artery of lower extremity; E87.6 Hypokalemia; G89.29 Other chronic pain; Z71.41 Alcohol abuse counseling and surveillance of alcoholic; I25.2 Old myocardial infarction; Z98.890 Other specified postprocedural states; Z79.899 Other long term (current) drug therapy
CPT/HCPCS: 0202U; 36415; 51701; 70450; 70496; 70498; 71045; 71275; 72100; 72125; 74174; 74230; 76700; 76857; 80048; 80053; 80069; 81001; 82550; 82553; 82803; 82947; 83605; 83735; 84443; 84484; 85025; 85610; 85730; 87040; 87070; 87205; 87389; 87449; 92526; 92610; 92611; 93005; 93010; 94640; 94664; 94760; 96365-59; 96375-59; 97110; 97162; 97530; 99285-25; A9270; C1751; G0480; J0360; J1650; J2543; J3370; J3411; J3480; J7030; J7050; J7120; Q9967

== ENCOUNTER → 2024-09-07 | Outpatient (CLI) | payer OTHER ==
[~2024-09-07] MED LIST changes: +ECOTRIN325 MG PO; +HYDROCHLOROTH12.5 MG PO; +OMEP20ER PO; +STIOLTO RESPIMAT4 G1 INH; +TAMSULOSIN HCL0.4 M1 PO
[2024-09-07 18:58] LABS: Hematocrit 39.5 % (37.0-53.0); Hemoglobin 13.5 g/dL (13.5-17.5); Mean Corpuscular HGB 33.4 pg (26.0-34.0); Mean Corpuscular HGB Conc 34.2 g/dL (31.5-36.5); Mean Corpuscular Volume 98 fL (80-100); Mean Platelet Volume 9.3 fL (9.1-12.4); Platelet Count 307 K/mm3 (150-400); RDW Coefficient Variation 12.3 % (11.7-14.2); RDW Standard Deviation 44.7 fL (35.1-46.3); Red Blood Cell Count 4.04 M/mm3 (4.30-5.90); White Blood Cell Count 9.61 K/mm3 (4.00-11.30)
[2024-09-07 19:26] LABS: BASOPHILS ABSOLUTE MAN 0.09 K/mm3 (0.00-0.23); BASOPHILS PERCENT MAN 1 % (0-2); EOSINOPHILS PERCENT MAN 0 % (0-6); LYMPHOCYTES ABSOLUTE MAN 2.01 K/mm3 (0.84-5.20); LYMPHOCYTES PERCENT MAN 21 % (21-46); MONOCYTES ABSOLUTE MAN 0.38 K/mm3 (0.16-1.47); MONOCYTES PERCENT MAN 4 % (4-13); NEUTROPHILS ABSOLUTE MAN 7.11 K/mm3 (1.96-9.15); SEG NEUTROPHILS PERCENT MAN 74 % (41-73); TOTAL CELLS COUNTED 100
[2024-09-07 20:33] LABS: Albumin, Blood 3.5 g/dL (3.4-5.0); Albumin/Globulin Ratio 0.8 (0.8-1.8); Bilirubin, Total 0.2 mg/dL (0.1-1.0); Bun/Creatinine Ratio 24.5 (12.0-20.0); Calcium, Blood 9.1 mg/dL (8.5-10.1); Creatinine, Blood 0.77 mg/dL (0.60-1.20); Globulin, Blood 4.3 g/dL (2.2-4.0); Phosphorus, Blood 3.6 mg/dL (2.5-4.9); Potassium, Blood 3.9 mmol/L (3.5-5.5); Total Protein, Blood 7.8 g/dL (6.4-8.2)
== END ==
LOC: LAB 18:47 → LAB SHORT 18:47
PROVIDERS: Nurse Practitioner
DX: R06.02 Shortness of breath (principal); R60.0 Localized edema
CPT/HCPCS: 80053; 83880; 84100; 85007; 85027

== ENCOUNTER 2025-08-24 11:15 | Emergency (ER) | payer OTHER ==
[~2025-08-24] VITALS: Ht 182.9 cm; Wt 68.0 kg
[2025-08-24] MEDS ORDERED: LISINOPRIL-HCT1 EACH PO (11:28)
[2025-08-24] MEDS ORDERED: BUDESONIDE-FO10.2 G3 IH (11:28)
[2025-08-24 11:55] LABS: BASOPHILS ABSOLUTE AUTO 0.04 K/mm3 (0.00-0.23); BASOPHILS PERCENT AUTO 1 % (0-2); EOSINOPHILS ABSOLUTE AUTO 0.06 K/mm3 (0.00-0.68); EOSINOPHILS PERCENT AUTO 1 % (0-6); Hematocrit 37.8 % (37.0-53.0); Hemoglobin 13.4 g/dL (13.5-17.5); IMMATURE GRAN ABSOLUTE AUTO 0.03 K/mm3 (0.00-0.10); IMMATURE GRAN PERCENT AUTO 0 % (0-1); LYMPHOCYTES ABSOLUTE AUTO 1.50 K/mm3 (0.84-5.20); LYMPHOCYTES PERCENT AUTO 20 % (21-46); MONOCYTES ABSOLUTE AUTO 0.49 K/mm3 (0.16-1.47); MONOCYTES PERCENT AUTO 7 % (4-13); Mean Corpuscular HGB Conc 35.4 g/dL (31.5-36.5); Mean Corpuscular Volume 94 fL (80-100); NEUTROPHILS ABSOLUTE AUTO 5.46 K/mm3 (1.96-9.15); NEUTROPHILS PERCENT AUTO 72 % (41-73); NRBC ABSOLUTE 0.00 K/mm3 (0.00-0.02); NRBC Auto 0.0 /100 WBC (0.0-0.2); Platelet Count 274 K/mm3 (150-400); RDW Coefficient Variation 11.9 % (11.7-14.2); RDW Standard Deviation 41.0 fL (35.1-46.3)
[2025-08-24 12:31] LABS: Alanine Aminotransfer (ALT/SGP 19.0 U/L (12-78); Albumin, Blood 3.4 g/dL (3.4-5.0); Albumin/Globulin Ratio 1.0 (0.8-1.8); Anion Gap 10.0 mmol/L (3-11); Aspartate Aminotrans (AST/SGOT 21.0 U/L (12-37); Bilirubin, Total 0.4 mg/dL (0.1-1.0); Blood Urea Nitrogen 13.0 mg/dL (8-24); CO2, Blood 25.0 mmol/L (21-32); Calcium, Blood 8.7 mg/dL (8.5-10.1); Chloride, Blood 105.0 mmol/L (98-108); Creatinine, Blood 0.83 mg/dL (0.60-1.20); Globulin, Blood 3.3 g/dL (2.2-4.0); Glucose, Blood 101.0 mg/dL (70-99); Potassium, Blood 4.3 mmol/L (3.5-5.5); Sodium, Blood 136.0 mmol/L (136-145); Total Protein, Blood 6.7 g/dL (6.4-8.2)
[2025-08-24 14:45] VITALS: BP 181/103
== END 2025-08-24 15:00 | disposition home or self-care (01) ==
LOC: ER 11:15
PROVIDERS: Emergency Medicine
DX: R07.89 Other chest pain (principal); I10 Essential (primary) hypertension; J44.9 Chronic obstructive pulmonary disease, unspecified; I25.2 Old myocardial infarction; E78.5 Hyperlipidemia, unspecified; F17.210 Nicotine dependence, cigarettes, uncomplicated; Z79.51 Long term (current) use of inhaled steroids; Z79.82 Long term (current) use of aspirin; Z79.899 Other long term (current) drug therapy
CPT/HCPCS: 71046; 80053; 84484; 85025; 93005; 93010; 99285-25